=== PATIENT | male | born 1950 | race Caucasian/White ===

== ENCOUNTER 2019-12-12 15:21 | Emergency (ER) | payer MEDICARE, SELFPAY ==
--- NOTE | 2019-12-12 15:30 | ED.URI ---
HPI - URI/Sore Throat General Chief Complaint: Upper Respiratory Infection Stated Complaint: ear Time Seen by Provider: 12/12/19 15:30 Source: patient and RN notes reviewed History of Present Illness HPI Narrative: Patient is a 69-year-old male that presents the urgent care with complaints of itchy eyes, mild postnasal drainage/sore throat, head congestion and bilateral ear irritation. Patient states is been ongoing for approximately 11 to 12 days. Patient denies any known fever or runny nose. Denies any cough or shortness of breath. Patient states that he has not used anything [id number] for his symptoms with the exception of ibuprofen for head congestion. No other acute complaints. No acute distress noted. Patient aware the plan of care. Related Data Allergies Allergy/AdvReac Type Severity Reaction Status Date / Time No Known Allergies Allergy Verified 12/12/19 15:30 Review of Systems Review of Systems: Narrative: CONSTITUTIONAL: Denies fever, chills, or sweats. EYES: Denies visual changes, redness, or discharge. Reports of itchy eyes ENT: Reports of bilateral ear pressure, head congestion and mild sore throat CARDIOVASCULAR: Denies chest pain, palpitations, or edema. RESPIRATORY: Denies cough or dyspnea. GASTROINTESTINAL: Denies abdominal pain, nausea, vomiting, or diarrhea. GENITOURINARY: Denies dysuria or hematuria. SKIN: Denies rash or itching. MUSCULOSKELETAL: Denies back pain, joint pain, or myalgia. NEUROLOGIC: Denies headache, numbness, or weakness. All other systems reviewed are negative, except as documented in HPI. [facility] Social History Social History Gender identity (if verbalized by the patient): Male Comments At the time of my signature, I reviewed and agree with the nursing past medical, surgical, social, and family history. There is no relevant family history pertinent to the patient complaint. Exam Narrative: Exam Narrative: GENERAL: This is a well-nourished, well-developed patient, in no apparent distress. HEAD: normocephalic, atraumatic. EYES: PERRL. Sclera clear/white. Vision is grossly intact. Very mild bilateral injected conjunctive a EARS: External ears normal, auditory canals clear and without drainage, mild fluid noted behind bilateral TMs without otitis, TMs normal without perforation. Hearing grossly intact. NOSE: External nose normal with no obvious nasal discharge, nares without redness, no rhinorrhea. THROAT: Mucous membranes moist, posterior pharynx clear. NECK: Neck supple, non-tender without lymphadenopathy, masses or thyromegaly. CARDIOVASCULAR: Regular rate and rhythm without murmurs, gallops, or rubs. RESPIRATORY: Clear to auscultation. Breath sounds equal bilaterally. No wheezes, rales, or rhonchi. SKIN: warm, intact with no suspicious lesions or rash, good texture and turgor. NEURO: awake, alert, and oriented to person, place and time. There were no obvious focal neurologic abnormalities. EXTREMITIES: No clubbing, cyanosis, or edema. Course Vital Signs Vital signs: Vital Signs Temperature 99.0 F 12/12/19 15:42 Pulse Rate 79 12/12/19 15:42 Respiratory Rate 18 12/12/19 15:42 Blood Pressure 163/88 H 12/12/19 15:42 Pulse Oximetry 99 12/12/19 15:42 Temperature 99.0 F 12/12/19 15:42 Pulse Rate 79 12/12/19 15:42 Respiratory Rate 18 12/12/19 15:42 Blood Pressure 163/88 H 12/12/19 15:42 Pulse Oximetry 99 12/12/19 15:42 Reviewed?patient is informed that they may have pre-hypertension or hypertension based on a blood pressure reading in the department. I recommend the patient call the primary care provider listed on their discharge instructions or a physician of their choice this week to arrange follow-up for further evaluation of possible pre-hypertension or hypertension. MDM - URI/Sore Throat MDM Narrative Medical decision making narrative: Advised the patient to complete steroid regimen as prescribed. Make sure to eat and drink with medicat
[2019-12-12 15:42] VITALS: BP 163/88; PULSE 79; RESP 18; TEMP 37.2; O2SAT 99
== END 2019-12-12 15:58 | disposition home or self-care (01) ==
PROVIDERS: Emergency Provider Nurse Practitioner Family; PCP Internal Medicine
DX: T78.40XA Allergy, unspecified, initial encounter (principal)
CPT/HCPCS: 99213; G0463

== ENCOUNTER → 2020-02-10 07:10 | Outpatient (REF) | payer MEDICARE, SELFPAY | LOC: ANHLAB 07:10 | PROVIDERS: PCP Internal Medicine; Visit Provider Nurse Practitioner Family | DX: C44.329 Squamous cell carcinoma of skin of other parts of face (principal) | CPT/HCPCS: 88305; 88331 ==

== ENCOUNTER 2020-10-06 05:34 | Emergency (ER) | payer MEDICARE, SELFPAY ==
--- NOTE | ~2020-10-06 | CT_ITS ---
EXAMINATION: CT abdomen pelvis w con DATE: 10/06/2020 06:49 INDICATION: Lower abdominal pain TECHNIQUE: Computed tomography (CT) of the abdomen and pelvis was performed with 100 mL Omnipaque-350 intravenous contrast. Automated exposure control and iterative reconstruction technique were employe d. The dose-length product was 1271.29 mGy-cm. COMPARISON: 10/19/2018 and 06/01/2011 FINDINGS: Likely benign 6 mm subpleural nodules in the left lower lobe unchanged since 06/01/2011. Heart size i s normal. No pericardial or pleural effusion. No interval change in a few subcentimeter low-attenuati on hepatic lesions most likely cysts or hemangiomas. Cholecystectomy clips the gallbladder fossa. Spl een, pancreas, right kidney and bilateral adrenal glands are normal. A couple left renal cysts the la rgest measuring 4.5 cm in maximal diameter. Small gas-filled diverticulum arising from the second por tion of the duodenum. There is fatty infiltration of the wall of the small bowel at the terminal ileu m and at no additional likely jejunal loop of small bowel in the left abdomen likely representing seq uela of prior Crohn's disease. Normal appendix. There are a few sigmoid diverticula with inflammatory stranding surrounding a diverticulum at the proximal sigmoid colon consistent with diverticulitis. T race amount of free fluid along the adjacent mesentery. No free intraperitoneal gas or abscess. Bladd er is normal. No interval change in a few mildly prominent likely reactive mesenteric lymph nodes. No pathologically enlarged abdominal or pelvic lymphadenopathy. Mild bilateral chronic sacroiliitis. IMPRESSION: 1. Radiographically uncomplicated proximal sigmoid diverticulitis. 2. Fatty infiltration of the wall of the small bowel to complications consistent with sequela of know n Crohn's disease. Reviewed, dictated and finalized at location A. TER MONITOR IMPRESSION: 1. Radiographically uncomplicated proximal sigmoid diverticulitis. 2. Fatty infiltration of the wall of the small bowel to complications consisten t with sequela of known Crohn's disease.
[2020-10-06 05:40] VITALS: BP 140/83; PULSE 77; RESP 20; TEMP 37; O2SAT 97
--- NOTE | 2020-10-06 05:45 | ED.ABDPAIN ---
HPI - Abdominal Pain General Chief Complaint: Abdominal Pain Stated Complaint: abd pain x3 days Time Seen by Provider: 10/06/20 05:44 Source: patient Mode of arrival: ambulatory Limitations: no limitations History of Present Illness HPI narrative: A 69-year-old male comes into the emergency department today with complaints of lower abdominal pain. Patient states that he feels it primarily across his lower abdomen. He states it has been there going on for the past couple of days and seems to be escalating. Patient states that he had an episode of flatus earlier that did help resolve his pain. He notes no relief with bowel movements however. Patient states that he is been urinating normally. He does note a mild subjective fever. Related Data Allergies Allergy/AdvReac Type Severity Reaction Status Date / Time No Known Allergies Allergy Verified 03/22/20 08:04 Review of Systems Review of Systems: Narrative: CONSTITUTIONAL: Denies fever, chills, or sweats. EYES: Denies visual changes, redness, or discharge. ENT: Denies rhinorrhea, congestion, sore throat, or otalgia. CARDIOVASCULAR: Denies chest pain, palpitations, or edema. RESPIRATORY: Denies cough or dyspnea. GASTROINTESTINAL: Denies nausea, vomiting, or diarrhea. Endorses abdominal pain GENITOURINARY: Denies dysuria or hematuria. SKIN: Denies rash or itching. MUSCULOSKELETAL: Denies back pain, joint pain, or myalgia. NEUROLOGIC: Denies headache, numbness, dizziness, or weakness. PSYCHIATRIC: Denies anxiety or depression. [facility] Surgical History Surgical History History of cholecystectomy History of tonsillectomy Social History Social History Gender identity (if verbalized by the patient): Male Exam Narrative: Exam Narrative: GENERAL: Well-appearing, well-nourished, and in no acute distress. HEAD: Normocephalic, atraumatic. EYES: PERRLA and EOMI. ENT: Nares clear, no rhinorrhea or epistaxis. Mucous membranes moist. NECK: Supple. No adenopathy or masses. No carotid bruits or JVD CHEST: Clear to auscultation. No respiratory distress. No wheezes rales or rhonchi HEART: Regular rate and rhythm. No murmur heard. Normal peripheral pulses. ABDOMEN: Voluntary guarding, diffuse tenderness concentrated most of all in the left lower quadrant normal active bowel sounds. EXTREMITIES: Normal range of motion. No edema. SKIN: Warm, dry, no rash. NEURO: No focal deficits. Alert and oriented x3. PSYCH: Normal mood and affect. Course Reevaluation(s) Reevaluation #1: Reevaluated patient provided care update. Told him that I felt the preliminary read of the CT scan by my read was consistent with acute diverticulitis. Did spend some time educating the patient and his about diverticulitis. We will plan to treat symptomatically and discharged home. Time: 07:07 Vital Signs Vital signs: Vital Signs Temperature 37.0 C 10/06/20 05:40 Pulse Rate 77 10/06/20 05:40 Respiratory Rate 20 10/06/20 05:40 Blood Pressure 140/83 10/06/20 05:40 Pulse Oximetry 97 10/06/20 05:40 Temperature 37.0 C 10/06/20 05:40 Pulse Rate 77 10/06/20 05:40 Respiratory Rate 20 10/06/20 05:40 Blood Pressure 140/83 10/06/20 05:40 Pulse Oximetry 97 10/06/20 05:40 MDM - Abdominal Pain MDM Narrative Medical decision making narrative: In brief this 69-year-old male came into the emergency department with complaints of a few days of abdominal pain. Labs reviewed, showed minor elevation of the white count suspicious for possible developing infection. Is exquisitely tender as the patient was in the left lower quadrant I was most suspicious of diverticulitis. Patient also had a distant history of Crohn's I want to rule out other etiologies for his pain such as perforation, IBD flare or abscess. Patient will be treated with Augmentin and pain medications, recommended to f
[2020-10-06] MEDS: LACTATED RINGERS 1,000 ML 999 ML IV CONT (06:10)
[2020-10-06] MEDS: ONDANSETRON INJ 4 MG/2 ML VIAL IV PUSH (06:11)
[2020-10-06] MEDS: KETOROLAC 15 MG/ML VIAL (*BKC) IV PUSH (06:15)
[2020-10-06 06:16] LABS: Basophils Percent Auto 0.2 % (0.2-1.2); Eosinophils Absolute Auto 0.2 K/mm3 (0-0.3); Eosinophils Percent Auto 1.3 % (0-4.4); Hemoglobin 14.4 g/dL (14.0-18.0); Immature Granulocyte Absolute 0.05 K/mm3 (0.00-0.031); Immature Granulocyte Percent A 0.4 % (0-0.5); Lymphocytes Absolute Auto 2.43 K/mm3 (0.9-3.2); Lymphocytes Percent Auto 19.8 % (18.3-44.2); Mean Corpuscular HGB Conc 33.5 g/dl (32-36); Mean Corpuscular Hemoglobin 28.6 pg (26-34); Mean Corpuscular Volume 85.3 fl (80-100); Mean Platelet Volume 9.7 fl (7.4-10.4); Monocytes Absolute Auto 1.5 K/mm3 (0.1-0.6); Monocytes Percent Auto 11.9 % (2.6-8.5); Neutrophils Absolute Auto 8.1 K/mm3 (1.3-6.7); Neutrophils Percent Auto 66.4 % (45.5-73.1); Platelet Count Result 304 k/mm3 (150-375); Red Blood Count 5.04 M/mm3 (4.6-6.20); Red Cell Distribution Width 13.6 % (11.5-14.5); White Blood Count 12.3 K/mm3 (4.5-10.0)
[2020-10-06 06:27] LABS: Alanine Aminotransferase 22 U/L (4-50); Albumin Level 3.6 g/dL (3.5-5.1); Alkaline Phosphatase 88 U/L (38-126); Anion Gap 7 mmol/L (8-16); Aspartate Amino Transferase 27 U/L (17-59); Bilirubin,Total 0.5 mg/dL (0.2-1.3); Blood Urea Nitrogen 9 mg/dL (9-20); Calcium 8.6 mg/dL (8.4-10.2); Carbon Dioxide 26 mmol/L (22-30); Chloride 104 mmol/L (98-107); Estimated Glomerular Filt Rate > 60; Glucose 105 mg/dL (75-110); Lipase 75 U/L (23-300); Potassium 4.2 mmol/L (3.4-5.0); Sodium 137 mmol/L (137-145)
[2020-10-06] MEDS: oxyCODONE/ACETAMINOPHEN (*CRX) 5-325 MG TABLET 1 TABLET PO (07:03)
[2020-10-06 07:49] VITALS: BP 137/81; PULSE 78; RESP 20; O2SAT 98
[2020-10-06] MEDS: AMOXICILLIN/CLAVULANATE K 875-125 MG TAB 1 TABLET PO (07:51)
--- NOTE | 2020-10-13 03:11 | PC.NURSE ---
LATE ENTRY This note is being entered to document information to the patient's record. The following information was omitted on [], donovan stop @ 1910 [].
== END 2020-10-06 07:51 | disposition home or self-care (01) ==
PROVIDERS: Emergency Provider Emergency Medicine; PCP Internal Medicine
DX: K57.32 Diverticulitis of large intestine without perforation or abscess without bleeding (principal); K50.90 Crohn's disease, unspecified, without complications
CPT/HCPCS: 36415; 74177; 80053; 83690; 85025; 96361; 96374; 96375; 99284; A9270; J1885; J2405; J7120; Q9967

== ENCOUNTER 2020-12-11 14:43 | Emergency (ER) | payer MEDICARE, SELFPAY ==
--- NOTE | 2020-12-11 14:46 | ED.URI ---
HPI - URI/Sore Throat General Chief Complaint: Upper Respiratory Infection Stated Complaint: Cough,Sore Throat Time Seen by Provider: 12/11/20 15:30 Source: patient and RN notes reviewed Mode of arrival: ambulatory Limitations: no limitations History of Present Illness HPI Narrative: 70-year-old male presents with concern for 2-day history of cough, runny nose, chest congestion. Reports he has been fully vaccinated for Covid. Denies any known sick contacts. Reports has had body aches, denies chills, sweats, fever. MD elicited complaint: cough Related Data Home Medications Medication Instructions Recorded Confirmed atorvastatin 12/11/20 cetirizine mg 12/11/20 Allergies Allergy/AdvReac Type Severity Reaction Status Date / Time No Known Allergies Allergy Verified 10/21/20 10:18 Review of Systems Review of Systems: Narrative: CONSTITUTIONAL: Denies malaise, chills, sweats, or fever. EYES: Denies visual changes, redness, or discharge. ENT: Reports rhinorrhea, sore throat. Denies congestion, sinus pain, otalgia CARDIOVASCULAR: Denies chest pain, palpitations, or edema. RESPIRATORY: Reports cough, chest congestion. Denies dyspnea. GASTROINTESTINAL: Denies abdominal pain, nausea, vomiting, diarrhea SKIN: Denies rash or itching. MUSCULOSKELETAL: Reports myalgia. NEUROLOGIC: Denies headache. All systems reviewed & are unremarkable except as noted in HPI and below PMFSH Surgical History Surgical History History of cholecystectomy History of tonsillectomy Social History Social History Smoking status: Never smoker Gender identity (if verbalized by the patient): Male Comments At time of signature, agree with nursing past medical, surgical, social and family history. There is no relevant family history pertinent to the presenting complaint Exam Narrative: Exam Narrative: GENERAL: Well-appearing, well-nourished, and in no acute distress. HEAD: Normocephalic EYES: PERRLA, conjunctivae clear ENT: Nares clear, turbinates erythematous, clear discharge. Mucous membranes moist. TM pearly echeverria with dull light reflex bilaterally; no tragal tenderness. Oropharynx mildly erythematous without lesions. Tonsils not enlarged and without exudate, no drooling, no hoarseness, no trismus, uvula midline. NECK: Supple. No lymphadenopathy CHEST: Clear to auscultation, breath sounds equal. No wheezing, rhonchi, rales, or stridor. No respiratory distress, speaks in full sentences. Cough noted HEART: Regular rate and rhythm. No murmur heard. SKIN: Warm, dry, no rash. NEURO: Alert and oriented x3. PSYCH: Normal mood and affect Course Course Emergency Course: Patient is aware of diagnosis, understands and agrees to treatment plan. Anticipatory guidance given. Patient agrees to follow-up as directed and is aware of reasons to seek care at the emergency department. Portions of this record may have been created with voice recognition software Vital Signs Vital signs: Vital Signs Temperature 98.6 F 12/11/20 14:52 Pulse Rate 84 12/11/20 14:52 Respiratory Rate 18 12/11/20 14:52 Blood Pressure 147/78 H 12/11/20 14:52 Pulse Oximetry 100 12/11/20 14:52 Temperature 98.6 F 12/11/20 14:52 Pulse Rate 84 12/11/20 14:52 Respiratory Rate 18 12/11/20 14:52 Blood Pressure 147/78 H 12/11/20 14:52 Pulse Oximetry 100 12/11/20 14:52 Reviewed. MDM - URI/Sore Throat MDM Narrative Medical decision making narrative: Differential diagnosis considered: Beal virus, strep pharyngitis, allergic rhinitis, upper respiratory tract infection, sinusitis, rhinosinusitis, nasopharyngitis. viral pharyngitis, otitis media, otitis externa, pneumonia, bronchitis, viral cough syndrome, viral syndrome, and influenza. Exam findings show no acute concerns or changes; patient is non-toxic appearing and is in no distress. Latia
[2020-12-11 14:52] VITALS: BP 147/78; PULSE 84; RESP 18; TEMP 37; O2SAT 100
== END 2020-12-11 15:46 | disposition home or self-care (01) ==
PROVIDERS: Emergency Provider Nurse Practitioner; PCP Registered Nurse
DX: J06.9 Acute upper respiratory infection, unspecified (principal); Z20.822 Contact with and (suspected) exposure to COVID-19; E78.00 Pure hypercholesterolemia, unspecified
CPT/HCPCS: 87426; 87804; 99213; C9803; G0463

== ENCOUNTER → 2020-12-24 01:50 | Outpatient (CLI) | payer MEDICARE, SELFPAY ==
[2020-12-24 19:44] LABS: SARS-CoV-2 RNA PCR Negative
== END ==
PROVIDERS: PCP Registered Nurse; Visit Provider Internal Medicine Gastroenterology
DX: Z01.812 Encounter for preprocedural laboratory examination (principal); Z20.822 Contact with and (suspected) exposure to COVID-19
CPT/HCPCS: C9803; U0003; U0005

== ENCOUNTER 2020-12-28 02:35 | Day surgery (SDC) | payer MEDICARE, SELFPAY ==
[2020-12-23 09:39] VITALS: BMI 31.4
--- NOTE | 2020-12-28 07:57 | WPDANESEPPF ---
Anes - Initial Pre Proc Eval Procedure: Operation Date: 12/28/20 09:00 Proposed Procedures p Colonoscopy - Oh Oliveira MD Date/Time: 12/28/20 07:57 Surgeon: Oh Oliveira MD Pre Op Diagnosis: diverticulitis Patient Data Age: 70 Gender: M Height: 1.83 m Weight: 105 kg Allergies Allergy/AdvReac Type Severity Reaction Status Date / Time No Known Allergies Allergy Verified 12/28/20 08:15 Home Medications Medication Instructions Recorded Confirmed Type atorvastatin 10 mg PO DAILY 12/11/20 12/28/20 History codeine-guaifenesin [Virtussin AC] 5 ml PO Q6H PRN #120 ml 12/11/20 12/23/20 Rx ipratropium bromide 2 spray NASAL TID PRN #30 ml 12/11/20 12/23/20 Rx Patient hx anesthesia problems: none Family hx anesthesia problems: none PMFSH Past Medical History Medical History (Updated 12/28/20 @ 07:58 by Víctor Carrizales MD) Crohn's disease Eczema Hypercholesterolemia Obesity Surgical History Surgical History History of cholecystectomy History of tonsillectomy Social History Social History Smoking status: Never smoker Living arrangements: with family Gender identity (if verbalized by the patient): Male Spiritual care concerns: No Anes - Eval Final PreProcedure Day of Procedure 12/28/20 07:57 Patient weight: obese Heart: regular rate and rhythm Lungs: clear to auscultation and normal air movement Airway: Mallampati scale class II Neurological: alert and oriented Last oral intake: >/= 8 hours ASA classification: II Emergent: no Anesthetic plan: proceed Anesthesia type and monitoring: general GIVS Informed Consent: The patient's anesthetic plan and its attendant risks and benefits were discussed with the patient/family/POA. Questions were solicited and answers provided to the satisfaction of the patient/family/POA.
[2020-12-28 08:17] VITALS: BP 130/77; PULSE 79; RESP 20; TEMP 36.4; O2SAT 97; BMI 30.4
[2020-12-28] MEDS: LACTATED RINGERS 1,000 ML 150 ML IV CONT (08:33)
--- NOTE | 2020-12-28 09:05 | PM.HPGS ---
History of Present Illness History of Present Illness Consent: Risks, benefits, and alternatives have been discussed and questions answered. Patient agrees to proceed with procedure. Chief complaint: diverticulitis Narrative: Sourav Mcknight is a 70 year old male with diverticulitis and intermittent lower abdominal pain, years ago was told that probably had Crohn's (never been on treatment) but colonoscopy 2019 was normal with also normal IBD serology Review of Systems Constitutional: Constitutional: Denies headache(s) and Denies weakness Eyes: Eyes: Denies blurry vision ENT: Reports Normal hearing present, Denies headache(s) and Denies neck pain Cardiovascular: Cardiovascular: Denies chest pain and Denies dyspnea Respiratory: Respiratory: Denies dyspnea Gastrointestinal: Gastrointestinal: Reports no additional gastrointestinal complaints Genitourinary: Genitourinary: Denies dysuria Musculoskeletal: Musculoskeletal: Denies neck pain Integumentary/Breasts: Skin/Breast: Denies dry skin Neurologic: Reports Normal hearing present, Denies headache(s) and Denies weakness Psychiatric: Psychiatric: Denies anxiety Endocrine: Endocrine: Denies change in body appearance Hematologic/Lymphatic: Hematologic/Lymphatic: Denies easy bleeding Allergic/Immunologic: Allergic/Immunologic: Denies urticaria PMF Past Medical History Medical History (Updated 12/28/20 @ 09:06 by Oh Oliveira MD) Crohn's disease Eczema History of diverticulitis Hypercholesterolemia Obesity Surgical History Surgical History History of cholecystectomy History of tonsillectomy Social History Social History Smoking status: Never smoker Living arrangements: with family Gender identity (if verbalized by the patient): Male Spiritual care concerns: No Meds Home Medications and Allergies Home Medications Medication Instructions Recorded Confirmed Type atorvastatin 10 mg PO DAILY 12/11/20 12/28/20 History codeine-guaifenesin [Virtussin AC] 5 ml PO Q6H PRN #120 ml 12/11/20 12/23/20 Rx ipratropium bromide 2 spray NASAL TID PRN #30 ml 12/11/20 12/23/20 Rx Allergies Allergy/AdvReac Type Severity Reaction Status Date / Time No Known Allergies Allergy Verified 12/28/20 08:15 Vital Signs Vital Signs - 24 hr 12/28/20 08:17 Temperature 97.6 F Pulse Rate 79 Respiratory Rate 20 Blood Pressure 130/77 Pulse Oximetry 97 Exam Const: General: comfortable and no acute distress HENMT: General nose exam: Normal nares present Eyes: General: appearance normal, both eyes and all related structures Neck: Neck: no JVD Resp: Auscultation: clear to auscultation bilaterally Cardio: Rate: regular rate Rhythm: regular rhythm GI: Inspection: non-distended GI Palp: Yes Soft to palpation Skin: General skin exam: normal color Neuro: General: gait normal Speech: normal speech Extrem: General: normal to inspection Psych: Mental Status: mental status grossly normal Assessment and Plan Assessment and plan (1) History of diverticulitis: Code(s): Z87.19 - Personal history of other diseases of the digestive system Status: Acute Assessment and Plan: colonoscopy
[2020-12-28 09:29] VITALS: BP 97/59; PULSE 86; RESP 21; O2SAT 98
[2020-12-28 09:39] VITALS: BP 115/77; PULSE 76; RESP 17; O2SAT 98
[2020-12-28 09:49] VITALS: BP 119/81; PULSE 65; RESP 13; O2SAT 96
== END 2020-12-28 09:58 | disposition home or self-care (01) ==
PROVIDERS: PCP Registered Nurse; Visit Provider Internal Medicine Gastroenterology
PROC: 0DJD8ZZ Inspection of Lower Intestinal Tract, Via Natural or Artificial Opening Endoscopic (ICD-10-PCS; CPT 45378; principal; 2020-12-28 09:00)
DX: K52.9 Noninfective gastroenteritis and colitis, unspecified (principal); K57.30 Diverticulosis of large intestine without perforation or abscess without bleeding; K64.8 Other hemorrhoids; Z87.19 Personal history of other diseases of the digestive system; E78.00 Pure hypercholesterolemia, unspecified; L30.9 Dermatitis, unspecified; E66.9 Obesity, unspecified; Z68.30 Body mass index [BMI] 30.0-30.9, adult
CPT/HCPCS: 45380; 88305; C9803; J2704; J7120; U0003; U0005

== ENCOUNTER 2021-03-06 06:41 | Outpatient (CLI) | payer MEDICARE, SELFPAY ==
[2021-02-24 08:49] VITALS: BMI 31.4
--- NOTE | 2021-02-24 08:59 | PC.NURSE ---
PATIENT INTERVIEW DONE ON 02/21/2021 FOR GIVENS CAPSULE ENDOSCOPY. PT HAS KNOW HISTORY OF SMALL BOWEL OBSTRUCTION. DR. TORRES NOTIFIED AND PT SCHEDULED FOR A PATENCY CAPSULE PRIOR TO GIVENS CAPSULE. PT CALLED AND DISCUSSED WITH PATIENT, PATIENT AGREES TO DO PATENCY CAPSULE. OFFICE CALLED AND SCHEDULE CHANGED.
--- NOTE | 2021-03-06 07:29 | SUR.OPER ---
Patient brought to GI Lab. Instructions for patient undergoing Patency Capsule Endoscopy reviewed with patient. Consent form signed. Patient swallowed capsule with 8 ozs of water. Patient instructed they may have clear liquids at 0900 this AM and eat or drink at 1100 this AM. Patient to call [phone] or to return to the hospital if any nausea and vomiting or abdominal pain is experienced.
== END 2021-03-06 06:42 | disposition home or self-care (01) ==
PROVIDERS: PCP Registered Nurse; Visit Provider Internal Medicine Gastroenterology
PROC: 0DJ07ZZ Inspection of Upper Intestinal Tract, Via Natural or Artificial Opening (ICD-10-PCS; CPT 91110; principal; 2021-03-06 07:00)
DX: K52.9 Noninfective gastroenteritis and colitis, unspecified (principal)
CPT/HCPCS: 91110

== ENCOUNTER 2021-03-07 12:07 | Outpatient (CLI) | payer MEDICARE, SELFPAY ==
--- NOTE | ~2021-03-07 | XR_ITS ---
EXAMINATION: XR abdomen/kub 1V INDICATION: Patient status post capsule ingestion TECHNIQUE: Supine views of the abdomen were obtained on four radiographs. COMPARISON: 10/19/2018 FINDINGS: No radiopaque enteric foreign body is identified. Cholecystectomy clips are noted in the ri ght upper quadrant. The bowel gas pattern is normal. The visualized lung bases are clear. There appea rs to be bilateral sacroiliitis. 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 IMPRESSION: 1. No radiopaque enteric foreign body identified. Reviewed, dictated and finalized at location A.
== END 2021-03-07 12:08 | disposition home or self-care (01) ==
PROVIDERS: PCP Registered Nurse; Visit Provider Internal Medicine Gastroenterology
DX: Z09 Encounter for follow-up examination after completed treatment for conditions other than malignant neoplasm (principal)
CPT/HCPCS: 74018

== ENCOUNTER 2021-03-08 05:46 | Outpatient (CLI) | payer MEDICARE, SELFPAY ==
[2021-02-24 09:54] VITALS: BMI 31.4
[2021-03-07 16:04] VITALS: BMI 31.4
--- NOTE | 2021-03-08 06:38 | SUR.OPER ---
Patient brought to GI Lab. Instructions for patient undergoing Capsule Endoscopy reviewed with patient. Consent form signed. Sensor array applied to patient's abdomen and connected to recorded. Patient swallowed capsule with 16ozs of water infused with Simethicone. Patient instructed they may have clear liquids at 0830 this AM and eat or drink at 1030 this AM. Patient instructed to return to GI Lab at 1500 this afternoon for removal of recording device and to call [phone] or to return to the hospital if any nausea and vomiting or abdominal pain is experienced.
--- NOTE | 2021-03-08 13:52 | SUR.OPER ---
Patient returned to the GI Lab at 1347 for recorder box removal. Patient voiced no complaints. States they have understanding of instructions. Patient left ambulatory. DR TORRES OFFICE NOTIFIED
== END 2021-03-08 05:47 | disposition home or self-care (01) ==
LOC: ANHENDO 05:48
PROVIDERS: PCP Registered Nurse; Visit Provider Internal Medicine Gastroenterology
PROC: 0DJ07ZZ Inspection of Upper Intestinal Tract, Via Natural or Artificial Opening (ICD-10-PCS; CPT 91110; principal; 2021-03-08 07:00)
DX: K52.9 Noninfective gastroenteritis and colitis, unspecified (principal)
CPT/HCPCS: 91110

== ENCOUNTER 2021-03-10 15:22 | Emergency (ER) | payer MEDICARE, SELFPAY ==
--- NOTE | ~2021-03-10 | XR_ITS ---
EXAMINATION: XR chest 2V DATE: 03/10/2021 15:35 INDICATION: Left chest pain TECHNIQUE: PA and lateral views of the chest are obtained. COMPARISON: 10/18/2016 FINDINGS: The lungs are free of acute opacities. There is no pleural effusion or pneumothorax. The ca rdiomediastinal silhouette is normal. The visualized bones and soft tissues are unremarkable. IMPRESSION: 1. No acute cardiopulmonary abnormality. Reviewed, dictated and finalized at location A.
--- NOTE | ~2021-03-10 | CT_ITS ---
EXAMINATION: CT thoracic spine wo con EXAM DATE: 03/10/2021 16:30 INDICATION: Fall, back pain. TECHNIQUE: Spiral CT thoracic spine wo con was performed thoracic spine Axial, coronal and sagittal images were reviewed. The dose-length product (DLP) for this examination was 475.06 mGy-cm. The exp osure was tailored according to patient size (auto mA exposure control), and iterative reconstruction (ASIR) was used as additional dose reduction technique. Correlation is made to CT abdomen pelvis 05/2019 FINDINGS: There are no acute thoracic vertebral body fractures identified. Posterior aspects of the ribs are also unremarkable. The vertebral bodies are aligned in the AP dimension. Mild thoracic spond ylosis. No paraspinal fat stranding. No endplate erosive change. Incidental findings include a mildly proteinaceous left renal peripelvic cyst and a right adrenal mas s measuring 1.6 cm, both unchanged compared to CT from 2019, benign. IMPRESSION: Mild thoracic spondylosis. No fracture. Reviewed, dictated and finalized at location B.
--- NOTE | ~2021-03-10 | CT_ITS ---
EXAMINATION: CT cervical spine wo con DATE: 03/10/2021 16:30 INDICATION: Neck pain post fall TECHNIQUE: Computed tomography (CT) of the cervical spine was performed without intravenous contrast. Automated exposure control and iterative reconstruction technique were employed. The dose-length pro duct was 475.06 mGy-cm. COMPARISON: None FINDINGS: Alignment is normal. Vertebral body heights are normal. No fracture. Mild disc height loss at the C5- C6 the stomach. Moderate left and mild right uncovertebral osteoarthritis. Remaining disc heights are normal. Additional moderate bilateral uncovertebral osteoarthritis at C6-C7. Moderate facet osteoart hritis on the left at C6-C7. Otherwise minimal to mild multilevel bilateral cervical facet osteoarthr itis. Mild bilateral neural foraminal stenosis at C6-C7. No central canal stenosis. Cervical soft tis sues are unremarkable. Visualized airway and apices of lungs are clear. IMPRESSION: 1. Mild lower cervical spondylosis. No acute osseous abnormality. Reviewed, dictated and finalized at location A.
[2021-03-10 15:26] VITALS: BP 152/74; PULSE 69; RESP 16; TEMP 36.1; O2SAT 100
[2021-03-10] MEDS: HYDROcodone/acetaminophen (*CRX) 5-325 MG TABLET 1 TAB PO (15:54)
--- NOTE | 2021-03-10 16:02 | ED.FALL ---
HPI - Fall General Chief Complaint: Fall Stated Complaint: fell, left axillary pain Time Seen by Provider: 03/10/21 15:27 Source: patient, family and RN notes reviewed Mode of arrival: ambulatory Limitations: no limitations History of Present Illness HPI Narrative: Patient is 70-year-old male who presents with injuries related to a ground-level fall that occurred just prior to arrival slipped on mud landed on his back presents complaining of cervical thoracic midline spine pain accompanied with left rib pain denies head injury syncope loss of consciousness. Patient presents in no distress. Abrasion to the anterior right knee noted. Has not taken anything for pain Related Data Home Medications Medication Instructions Recorded Confirmed atorvastatin 10 mg PO DAILY 12/11/20 02/24/21 Allergies Allergy/AdvReac Type Severity Reaction Status Date / Time No Known Allergies Allergy Verified 02/09/21 10:06 Review of Systems Review of Systems: All systems reviewed & are unremarkable except as noted in HPI and below PMFSH Past Medical History Medical History Crohn's disease Eczema History of diverticulitis Hypercholesterolemia Ileitis, terminal Obesity Surgical History Surgical History History of cholecystectomy History of tonsillectomy Social History Social History Smoking status: Never smoker Alcohol intake: never Substance use: never Gender identity (if verbalized by the patient): Male Spiritual care concerns: No Exam Narrative: GENERAL: Well-appearing, well-nourished, and in no acute distress. HEAD: Normocephalic, atraumatic. EYES: PERRLA and EOMI. ENT: Nares clear, no rhinorrhea or epistaxis. Mucous membranes moist. NECK: Supple. No adenopathy or masses. CHEST: Clear to auscultation. No respiratory distress. No wheezes rales or rhonchi HEART: Regular rate and rhythm. No murmur heard. Normal peripheral pulses. EXTREMITIES: Normal range of motion. No edema. Midline cervical and thoracic tenderness no deformities no lumbar tenderness. Tenderness of the left lateral ribs SKIN: Warm, dry, no rash. NEURO: No focal deficits. Alert and oriented x3. Cranial nerves II through XII grossly intact PSYCH: Normal mood and affect. Course Course Emergency Course: Patient evaluated the emergency department no high risk changes in the imaging or evaluation will be discharged home treated symptomatically Vital Signs Vital signs: Vital Signs Temperature 97.0 F L 03/10/21 15:26 Pulse Rate 69 03/10/21 15:26 Respiratory Rate 16 03/10/21 15:26 Blood Pressure 152/74 H 03/10/21 15:26 Pulse Oximetry 100 03/10/21 15:26 Temperature 97.0 F L 03/10/21 15:26 Pulse Rate 69 03/10/21 15:26 Respiratory Rate 16 03/10/21 15:26 Blood Pressure 152/74 H 03/10/21 15:26 Pulse Oximetry 100 03/10/21 15:26 MDM - Fall MDM Narrative Medical decision making narrative: Patients injury or pain is consistent with musculoskeletal etiology. No signs of neurological or vascular compromise on exam. Compartments and tisues are soft without signs of compartment syndrome. Pain is felt appropriate for further evaluation on an outpatient basis. Imaging Data Radiologist's impression: ITS Impressions Chest X-Ray 03/10/21 15:37 IMPRESSION: 1. No acute cardiopulmonary abnormality. Cervical Spine CT 03/10/21 16:37 IMPRESSION: 1. Mild lower cervical spondylosis. No acute osseous abnormality. Thoracic Spine CT 03/10/21 16:45 IMPRESSION: Mild thoracic spondylosis. No fracture. Discharge Plan Discharge Clinical Impression: Rib pain on left side, Cervical muscle strain, Acute thoracic myofascial strain Patient Disposition: Home, Self-Care Condition: Stable Instructions: Antibiotic Form, Contu
[2021-03-10 17:17] VITALS: BP 137/86; PULSE 64; RESP 16; O2SAT 98
== END 2021-03-10 17:17 | disposition home or self-care (01) ==
PROVIDERS: Emergency Provider Emergency Medicine; PCP Registered Nurse
DX: S29.012A Strain of muscle and tendon of back wall of thorax, initial encounter (principal); S16.1XXA Strain of muscle, fascia and tendon at neck level, initial encounter; R07.81 Pleurodynia; K50.90 Crohn's disease, unspecified, without complications; E78.00 Pure hypercholesterolemia, unspecified; E66.9 Obesity, unspecified; Z68.31 Body mass index [BMI] 31.0-31.9, adult; M47.812 Spondylosis without myelopathy or radiculopathy, cervical region; M47.814 Spondylosis without myelopathy or radiculopathy, thoracic region; W01.0XXA Fall on same level from slipping, tripping and stumbling without subsequent striking against object, initial encounter
CPT/HCPCS: 71046; 72125; 72128; 99284; A9270

== ENCOUNTER 2021-05-24 09:40 | Emergency (ER) | payer MEDICARE, SELFPAY ==
[2021-05-24 09:49] VITALS: BP 126/71; PULSE 65; RESP 16; TEMP 36.4; O2SAT 99
--- NOTE | 2021-05-24 10:57 | ED.URI ---
HPI - URI/Sore Throat General Chief Complaint: Upper Respiratory Infection Stated Complaint: cough/congestion/sore throat /body aches Time Seen by Provider: 05/24/21 10:58 Source: patient and RN notes reviewed Mode of arrival: ambulatory Limitations: no limitations History of Present Illness HPI Narrative: 70-year-old male presents concern for 3-day history of cough, congestion, sore throat, body aches, general malaise. Reports he has been fully vaccinated for Covid and he had a booster approximately 1 month ago. He denies shortness of breath, loss of taste or smell. 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 Reports he has been taking ibuprofen and Mucinex with little relief MD elicited complaint: cough Related Data Home Medications Medication Instructions Recorded Confirmed atorvastatin 10 mg PO DAILY 12/11/20 05/24/21 Allergies Allergy/AdvReac Type Severity Reaction Status Date / Time No Known Allergies Allergy Verified 05/24/21 10:42 Review of Systems Review of Systems: CONSTITUTIONAL: Reports malaise. Denies chills, sweats, or fever. EYES: Denies visual changes, redness, or discharge. ENT: Reports rhinorrhea, congestion, sore throat. Denies sinus pain, otalgia CARDIOVASCULAR: Denies chest pain, palpitations, or edema. RESPIRATORY: Reports cough. Denies dyspnea. GASTROINTESTINAL: Denies abdominal pain, nausea, vomiting, diarrhea SKIN: Denies rash or itching. MUSCULOSKELETAL: Reports myalgia. NEUROLOGIC: Denies headache. All systems reviewed & are unremarkable except as noted in HPI and below PMFSH Past Medical History Medical History Crohn's disease Eczema History of diverticulitis Hypercholesterolemia Ileitis, terminal Obesity Surgical History Surgical History History of cholecystectomy History of tonsillectomy Social History Social History Alcohol intake: never Substance use: never Gender identity (if verbalized by the patient): Male Spiritual care concerns: No Comments At time of signature, agree with nursing past medical, surgical, social and family history. There is no relevant family history pertinent to the presenting complaint Exam Narrative: GENERAL: Well-appearing, well-nourished, and in no acute distress. HEAD: Normocephalic EYES: PERRLA, conjunctivae clear ENT: Nares clear, turbinates erythematous, clear discharge. Mucous membranes moist. TM pearly echeverria with sharp light reflex bilaterally; no tragal tenderness. Oropharynx not erythematous without lesions. Tonsils not enlarged and without exudate, no drooling, no hoarseness, no trismus, uvula midline. NECK: Supple. No lymphadenopathy CHEST: Clear to auscultation, breath sounds equal. No wheezing, rhonchi, rales, or stridor. No respiratory distress, speaks in full sentences. HEART: Regular rate and rhythm. No murmur heard. SKIN: Warm, dry, no rash. NEURO: Alert and oriented x3. PSYCH: Normal mood and affect Course Course Emergency Course: Patient is aware of diagnosis, understands and agrees to treatment plan. Anticipatory guidance given. Patient agrees to follow-up as directed and is aware of reasons to seek care at the emergency department. Portions of this record may have been created with voice recognition software Vital Signs Vital signs: Vital Signs Temperature 97.5 F L 05/24/21 09:49 Pulse Rate 65 05/24/21 09:49 Respiratory Rate 16 05/24/21 09:49 Blood Pressure 126/71 05/24/21 09:49 Pulse Oximetry 99 05/24/21 09:49 Temperature 97.5 F L 05/24/21 09:49 Pulse Rate 65 05/24/21 09:49 Respiratory Rate 16 05/24/21 09:49 Blood Pressure 126/71 05/24/21 09:49 Pulse Oximetry 99 05/24/21 09:49 Reviewed. MDM - URI/Sore Throat MDM Narrative Medical decision making narrative: Differential diagnos
[2021-05-25 18:09] LABS: SARS-CoV-2 RNA PCR Negative
== END 2021-05-24 11:30 | disposition home or self-care (01) ==
PROVIDERS: Emergency Provider Nurse Practitioner; PCP Registered Nurse
DX: J06.9 Acute upper respiratory infection, unspecified (principal); Z20.822 Contact with and (suspected) exposure to COVID-19; K50.90 Crohn's disease, unspecified, without complications; E78.00 Pure hypercholesterolemia, unspecified; E66.9 Obesity, unspecified; Z68.31 Body mass index [BMI] 31.0-31.9, adult
CPT/HCPCS: 87426; 99213; C9803; G0463; U0003; U0005

== ENCOUNTER 2021-11-25 08:24 | Emergency (ER) | payer MEDICARE, SELFPAY ==
[2021-11-25 08:38] VITALS: BP 128/72; PULSE 92; RESP 18; TEMP 36.8; O2SAT 98
--- NOTE | 2021-11-25 09:06 | ED.URI ---
HPI - URI/Sore Throat General Chief Complaint: Upper Respiratory Infection Stated Complaint: Sore Throat Time Seen by Provider: 11/25/21 09:06 Source: patient Mode of arrival: ambulatory Limitations: no limitations History of Present Illness HPI Narrative: 70-year-old male presents with complaint of nasal congestion, cough, sore throat, body aches and fatigue. Afebrile. Taking Mucinex, Robitussin and [id number] pain medication to treat his symptoms. 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 Denies Covid contact. Denies chest pain and shortness of breath. All systems reviewed and negative except as noted above. Related Data Home Medications Medication Instructions Recorded Confirmed atorvastatin 11/25/21 levothyroxine [Euthyrox] 11/25/21 testosterone cypionate mg 11/25/21 Allergies Allergy/AdvReac Type Severity Reaction Status Date / Time No Known Allergies Allergy Verified 06/29/21 10:43 Review of Systems Review of Systems: CONSTITUTIONAL: Denies fever, chills, or sweats. EYES: Denies visual changes, redness, or discharge. ENT: Reports rhinorrhea, congestion, sore throat. Denies otalgia. CARDIOVASCULAR: Denies chest pain, palpitations, or edema. RESPIRATORY: Reports cough. Denies dyspnea. GASTROINTESTINAL: Denies abdominal pain, nausea, vomiting, or diarrhea. GENITOURINARY: Denies dysuria or hematuria. SKIN: Denies rash or itching. MUSCULOSKELETAL: Denies back pain, joint pain, or myalgia. NEUROLOGIC: Denies headache, numbness, or weakness. PSYCHIATRIC: Denies anxiety or depression. All other systems reviewed are negative, except as documented in HPI. [facility] Past Medical History Medical History (Updated 11/25/21 @ 09:13 by Brandi Spaulding NP) Abdominal pain Crohn's disease Dry eyes Eczema History of diverticulitis Hypercholesterolemia Ileitis, terminal Nausea Obesity Surgical History Surgical History History of cholecystectomy History of tonsillectomy Social History Social History Alcohol intake: never Substance use: never Gender identity (if verbalized by the patient): Male Spiritual care concerns: No Comments Reviewed Exam Narrative: GENERAL: This is a well-nourished, well-developed patient, in no apparent distress. HEAD: normocephalic, atraumatic. EYES: PERRL. Sclera injected. No drainage. Vision is grossly intact. EARS: External ears normal, auditory canals clear and without drainage, TMs normal without perforation. Hearing grossly intact. NOSE: External nose normal with clear nasal drainage with mild erythema to nares. THROAT: Mucous membranes moist, mild erythema to posterior pharynx with clear postnasal drainage. NECK: Neck supple, non-tender without lymphadenopathy, masses or thyromegaly. CARDIOVASCULAR: Regular rate and rhythm without murmurs, gallops, or rubs. RESPIRATORY: Clear to auscultation. Breath sounds equal bilaterally. No wheezes, rales, or rhonchi. SKIN: warm, Dry, intact with no suspicious lesions or rash, good texture and turgor. NEURO: awake, alert, and oriented to person, place and time. There were no obvious focal neurologic abnormalities. EXTREMITIES: Normal range of motion to all extremities. Course Course Level of Care: Express Care Visit Vital Signs Vital signs: Vital Signs Temperature 36.8 C 11/25/21 08:38 Pulse Rate 92 11/25/21 08:38 Respiratory Rate 18 11/25/21 08:38 Blood Pressure 128/72 11/25/21 08:38 Pulse Oximetry 98 11/25/21 08:38 Temperature 36.8 C 11/25/21 08:38 Pulse Rate 92 11/25/21 08:38 Respiratory Rate 18 11/25/21 08:38 Blood Pressure 128/72 11/25/21 08:38 Pulse Oximetry 98 11/25/21 08:38 Reviewed MDM - URI/Sore Throat MDM Narrative Medical decision making narrative: Patient is aware of diagnosis, understands and agrees to treatment plan
== END 2021-11-25 09:30 | disposition home or self-care (01) ==
PROVIDERS: Emergency Provider Nurse Practitioner Family
DX: J06.9 Acute upper respiratory infection, unspecified (principal); K50.90 Crohn's disease, unspecified, without complications; E78.00 Pure hypercholesterolemia, unspecified; E66.9 Obesity, unspecified; Z68.31 Body mass index [BMI] 31.0-31.9, adult
CPT/HCPCS: 87081; 87880; 99213; G0463

== ENCOUNTER 2022-03-11 11:32 | Emergency (ER) | payer MEDICARE, SELFPAY ==
[2022-03-11] VITALS (20 sets, daily range): BP systolic 139–172; BP diastolic 85–112; PULSE 75–88; RESP 14–16; TEMP 36.4; O2SAT 94–100
[2022-03-11 11:49] LABS: Basophils Percent Auto 0.3 % (0.2-1.2); Eosinophils Percent Auto 0.4 % (0-4.4); Hematocrit 47.3 % (42.0-52.0); Hemoglobin 15.5 g/dL (14.0-18.0); Immature Granulocyte Absolute 0.07 K/mm3 (0.00-0.031); Lymphocytes Percent Auto 35.7 % (18.3-44.2); Mean Corpuscular HGB Conc 32.8 g/dl (32-36); Mean Corpuscular Hemoglobin 28.4 pg (26-34); Mean Corpuscular Volume 86.6 fl (80-100); Mean Platelet Volume 9.2 fl (7.4-10.4); Monocytes Absolute Auto 0.8 K/mm3 (0.1-0.6); Monocytes Percent Auto 10.7 % (2.6-8.5); Neutrophils Absolute Auto 3.6 K/mm3 (1.3-6.7); Neutrophils Percent Auto 51.9 % (45.5-73.1); Platelet Count Result 279 k/mm3 (150-375); Red Blood Count 5.46 M/mm3 (4.6-6.20); Red Cell Distribution Width 14.1 % (11.5-14.5)
[2022-03-11 11:52] LABS: Appearance Urine Clear (Clear); Bilirubin Urine Negative (Negative); Blood Urine Negative (Negative); Color Urine Yellow (Yellow); Glucose Urine UA Negative (Negative); Ketones Urine Negative (Negative); Leukocyte Esterase Ur Negative LEU/UL (Negative); Nitrate Urine Negative (Negative); Protein Urine 1+ mg/dL (Negative); Specific Grav Ur 1.015 (1.001-1.035); Urobilinogen Urine 0.2 mg/dL (<2.0); pH Urine >=9.0 (5.0-9.0)
[2022-03-11 11:58] LABS: Mucus Urine Rare /lpf; RBC Urine 0-2 /hpf (0-2); WBC Urine 0-3 /hpf
[2022-03-11 11:59] LABS: Alanine Aminotransferase 52 U/L (6-50); Albumin Level 3.9 g/dL (3.5-5.1); Alkaline Phosphatase 95 U/L (38-126); Anion Gap 8 mmol/L (8-16); Aspartate Amino Transferase 42 U/L (17-59); Bilirubin,Total 0.8 mg/dL (0.2-1.3); Blood Urea Nitrogen 9 mg/dL (9-20); Calcium 8.1 mg/dL (8.4-10.2); Carbon Dioxide 31 mmol/L (22-30); Chloride 99 mmol/L (98-107); Estimated CRCL calculation 105 ml/min; Estimated Glomerular Filt Rate > 60; Glucose 117 mg/dL (65-110); Lipase 71 U/L (23-300); Potassium 4.6 mmol/L (3.4-5.0); Sodium 138 mmol/L (137-145)
[2022-03-11 12:00] LABS: Add Urine Microscopic? YES
[2022-03-11] MEDS: SODIUM CHLORIDE 0.9% IV 1,000 ML 999 ML IV CONT (13:03)
[2022-03-11] MEDS: ONDANSETRON INJ 4 MG/2 ML VIAL IV PUSH (13:03)
--- NOTE | 2022-03-11 14:10 | ED.ABDPAIN ---
HPI - Abdominal Pain General Chief Complaint: Abdominal Pain Stated Complaint: covid positive, abd pain Time Seen by Provider: 03/11/22 12:41 History of Present Illness HPI narrative: Patient is a 71-year-old male who presents ER with multiple complaints. Reports over the last 4 days has been having epigastric discomfort with nausea. He also gets some dizziness with laying backwards and other movements. Sometimes the dizziness and nausea are associated together. No weakness or numbness in arm or leg. No chest pain or chest pressure. No exertional dyspnea. He has been on antiviral for his COVID 19 that was diagnosed 1 week ago and his doctor thought that may have been the cause of some nausea so he quit 2 days after symptoms began but his symptoms still persist in terms of abdominal discomfort and nausea. Reports he started taking Pepto-Bismol and the color of his stool has changed. Related Data Home Medications Medication Instructions Recorded Confirmed atorvastatin 10 mg tablet 11/25/21 levothyroxine 50 mcg tablet 11/25/21 (Euthyrox) testosterone cypionate 200 mg/mL mg 11/25/21 intramuscular oil Allergies Allergy/AdvReac Type Severity Reaction Status Date / Time No Known Allergies Allergy Verified 06/29/21 10:43 Review of Systems Review of Systems: All systems reviewed & are unremarkable except as noted in HPI and below Constitutional: Constitutional: Denies chills and Denies fever(s) ENT: Denies nasal congestion and Denies sore throat Cardiovascular: Cardiovascular: Denies chest pain, Denies rapid heart rate and Denies radiating jaw, neck or arm pain Respiratory: Respiratory: Denies cough and Denies dyspnea Gastrointestinal: Gastrointestinal: Reports abdominal pain, Reports nausea and Denies vomiting Neurologic: Reports dizziness, Denies headache(s), Denies focal weakness and Denies numbness [facility] Past Medical History Medical History (Updated 03/11/22 @ 14:48 by Donavon Vang MD) Abdominal pain Crohn's disease Dry eyes Eczema History of diverticulitis Hypercholesterolemia Ileitis, terminal Nausea Obesity Surgical History Surgical History History of cholecystectomy History of tonsillectomy Social History Social History Alcohol intake: never Substance use: never Gender identity (if verbalized by the patient): Male Spiritual care concerns: No Exam Narrative: GENERAL: Well-appearing, well-nourished, and in no acute distress. HEAD: Normocephalic, atraumatic. EYES: PERRL and EOMI. CHEST: Clear to auscultation. No respiratory distress. HEART: Regular rate and rhythm. Normal peripheral pulses. ABDOMEN: Soft, nontender, nondistended. Digital rectal exam with Hemoccult negative stool. EXTREMITIES: Normal range of motion. No edema. SKIN: Warm, dry, no rash. NEURO: Alert and oriented x3. PSYCH: Normal mood and affect. Course Course Emergency Course: Patient informed of results. Meclizine given for dizziness as it seems to be very much positional. Discharge home with supportive therapy. No evidence of internal bleeding. Vital Signs Vital signs: Vital Signs Temperature 97.5 F L 03/11/22 11:33 Pulse Rate 75 03/11/22 11:33 Respiratory Rate 14 03/11/22 11:33 Blood Pressure 148/85 H 03/11/22 11:33 Pulse Oximetry 100 03/11/22 11:33 Oxygen Delivery Room Air 03/11/22 11:33 Temperature 97.5 F L 03/11/22 11:33 Pulse Rate 82 03/11/22 14:16 Respiratory Rate 16 03/11/22 14:16 Blood Pressure 155/103 H 03/11/22 14:16 Pulse Oximetry 97 03/11/22 14:16 Oxygen Delivery Room Air 03/11/22 11:33 MDM - Abdominal Pain Lab Data Result diagrams: 03/11/22 11:41 03/11/22 11:41 Labs: Lab Results 03/11/22 03/11/22 03/11/22 Range/Units 11:41 11:41 11:42 WBC 7.0 (4.5-10.0) K/mm3 RBC 5.46 (4.6
[2022-03-11] MEDS: MECLIZINE HCL 25 MG TABLET PO (14:28)
== END 2022-03-11 15:15 | disposition home or self-care (01) ==
PROVIDERS: Emergency Medicine; Emergency Provider Emergency Medicine
DX: U07.1 COVID-19 (principal); R42 Dizziness and giddiness; K50.90 Crohn's disease, unspecified, without complications; E78.00 Pure hypercholesterolemia, unspecified; E66.9 Obesity, unspecified; Z68.32 Body mass index [BMI] 32.0-32.9, adult
CPT/HCPCS: 36415; 80053; 81001; 83690; 85025; 96374; 99284; A9270; J2405; J7030

== ENCOUNTER 2022-12-04 16:54 | Inpatient (IN) | payer MEDICARE, SELFPAY ==
--- NOTE | ~2022-12-04 | XR_ITS ---
EXAMINATION: XR sm bowel follow through WS DATE: 12/05/2022 12:51 INDICATION: Crohn's disease presenting with possible small bowel obstruction. TECHNIQUE: Creative [employer] radiograph(s) of the abdomen was/were obtained. Oral contrast was administered, and sequential radiographs of the abdomen were obtained until oral contrast was noted to be in the proxi mal colon. A total of 116 fluoroscopic images and 4 overhead radiographs of the small bowel were obta ined. Fluoroscopy exposure time was 0.3 minutes. COMPARISON: CT dated 12/04/2022 FINDINGS: Transit time from the stomach to proximal colon was approximately 45 minutes. There is normal caliber and mucosal fold pattern throughout the small bowel. On the overhead radiographs there is a persiste nt 1.5 cm long stricture measuring approximate 5 mm an intraluminal diameter along a segment of small bowel just to left of midline in the central abdomen. On the CT there are a few small segments of sm all bowel in the left abdomen demonstrating mild wall thickening with intramural fat attenuation whic h can be seen as sequela of chronic inflammation such as in the setting of Crohn's disease. No dilate d small bowel to suggest obstruction. Terminal ileum is normal. Cholecystectomy clips in the right up per quadrant.. IMPRESSION: 1. Nonobstructing stricture of a short segment of small bowel in the left abdomen which is likely seq uela of chronic Crohn's disease. Reviewed, dictated and finalized at location A. IMPRESSION: 1. Nonobstructing stricture of a short segment of small bowel in the left abdom en which is likely sequela of chronic Crohn's disease.
--- NOTE | ~2022-12-04 | XR_ITS ---
EXAMINATION: XR abdomen obstructive series DATE: 12/05/2022 09:33 INDICATION: Small bowel obstruction TECHNIQUE: Upright and supine views of the abdomen were obtained. COMPARISON: CT from yesterday FINDINGS: No dilated loops of bowel are identified. The bowel gas pattern is normal. No free intraper itoneal gas is identified. A moderate volume of colonic stool is present. There is opacification of t he urinary bladder by contrast from yesterday's CT examination. 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 IMPRESSION: 1. Nonobstructive bowel gas pattern. Reviewed, dictated and finalized at location B.
--- NOTE | ~2022-12-04 | CT_ITS ---
EXAMINATION: CT abdomen pelvis w con DATE: 12/04/2022 22:06 INDICATION: diffuse L abd pain, N/V, Hx crohns/diverticulitis TECHNIQUE: Computed tomography (CT) of the abdomen and pelvis was performed with 100 mL Omnipaque-350 intravenous contrast. Automated exposure control and iterative reconstruction technique were employe d. The dose-length product was 1244.35 mGy-cm. COMPARISON: 10/06/2020 and 10/19/2018. FINDINGS: Lower thorax: Dependent right scar/atelectasis. Chronic right pleural thickening. Likely benign subpl eural nodules in the left lower lobe. Liver: Simple right liver lobe cyst. Stable hypodensities near the tip of the liver in the right lobe likely hemangiomas or cysts. Coronary artery calcification. Biliary/Gallbladder: Gallbladder is absent. No bile duct dilation. Pancreas: No mass or duct dilation. Spleen: Normal. Adrenals:No mass. Kidneys: Left midpole cyst. No suspicious mass, hydronephrosis, or obstructing calcification. GI tract: Uncomplicated appearing duodenal diverticulum. Loop of mildly dilated jejunum in the left a bdomen. Scattered areas of chronic submucosal fat deposition in the small bowel. Normal appendix. Mil d diverticulosis without diverticulitis. Mesentery/Peritoneum: No ascites, mass, or free air. Mesenteric lymphadenopathy. Retroperitoneum: No mass. Mild atherosclerotic abdominal aortic and/or arterial calcifications. Pelvis: Pelvic organs are within normal limits. Soft Tissues: Soft tissues and body wall unremarkable. Bones: No acute osseous finding. IMPRESSION: Single loop of mildly dilated jejunum in the left abdomen, may represent mild ileus. Early/partial ob struction is not excluded. No transition point. No significant surrounding inflammatory change or mas s. Chronic mesenteric lymphadenopathy. Reviewed, dictated and finalized at location K. IMPRESSION: Single loop of mildly dilated jejunum in the left abdomen, may represent mild i leus. Early/partial obstruction is not excluded. No transition point. No signif icant surrounding inflammatory change or mass. Chronic mesenteric lymphadenopat hy.
--- NOTE | 2022-12-04 16:56 | PC.NURSE ---
[facility] gave zofran en route.
[2022-12-04 16:58] VITALS: BP 169/80; PULSE 61; RESP 16; TEMP 36.4; O2SAT 97
[2022-12-04 17:26] LABS: Basophils Absolute Auto 0.1 K/mm3 (0.0-0.1); Basophils Percent Auto 0.4 % (0.2-1.2); Eosinophils Absolute Auto 0.1 K/mm3 (0-0.3); Eosinophils Percent Auto 0.6 % (0-4.4); Hematocrit 43.6 % (42.0-52.0); Hemoglobin 15.2 g/dL (14.0-18.0); Immature Granulocyte Absolute 0.08 K/mm3 (0.00-0.031); Immature Granulocyte Percent A 0.7 % (0-0.5); Lymphocytes Percent Auto 18.9 % (18.3-44.2); Mean Corpuscular HGB Conc 34.9 g/dl (32-36); Mean Corpuscular Hemoglobin 30.4 pg (26-34); Mean Corpuscular Volume 87.2 fl (80-100); Mean Platelet Volume 9.3 fl (7.4-10.4); Monocytes Absolute Auto 1.2 K/mm3 (0.1-0.6); Monocytes Percent Auto 9.8 % (2.6-8.5); Neutrophils Absolute Auto 8.5 K/mm3 (1.3-6.7); Neutrophils Percent Auto 69.6 % (45.5-73.1); Platelet Count Result 299 k/mm3 (150-375); Red Cell Distribution Width 13.6 % (11.5-14.5); White Blood Count 12.1 K/mm3 (4.5-10.0)
[2022-12-04 17:36] LABS: Alanine Aminotransferase 29 U/L (6-50); Alkaline Phosphatase 89 U/L (38-126); Anion Gap 9 mmol/L (8-16); Aspartate Amino Transferase 33 U/L (17-59); Bilirubin,Total 0.5 mg/dL (0.2-1.3); Blood Urea Nitrogen 13 mg/dL (9-20); Calcium 8.9 mg/dL (8.4-10.2); Carbon Dioxide 26 mmol/L (22-30); Chloride 103 mmol/L (98-107); Estimated CRCL calculation 116 ml/min; Estimated Glomerular Filt Rate > 60; Glucose 135 mg/dL (65-110); Lipase 79 U/L (23-300); Sodium 138 mmol/L (137-145)
--- NOTE | 2022-12-04 21:55 | ED.ABDPAIN ---
HPI - Abdominal Pain General Chief Complaint: Abdominal Pain <LAURITA Montiel Last Filed: 12/05/22 01:31> Stated Complaint: Abdominal pain/nausea <LAURITA Montiel Last Filed: 12/05/22 01:31> Time Seen by Provider: 12/04/22 21:26 <LAURITA Montiel Last Filed: 12/05/22 01:31> Source: patient <LAURITA Montiel Last Filed: 12/05/22 01:31> Mode of arrival: EMS <LAURITA Montiel Filed: 12/05/22 01:31> Limitations: no limitations <LAURITA Montiel Filed: 12/05/22 01:31> History of Present Illness HPI narrative: Patient is a 71 y/o male who presents to the ED via EMS with report of diffuse abdominal pain. Patient reports the pain began suddenly around 3 PM. He states the pain was severe at first at which point EMS was called. The pain has somewhat improved since being in the ED waiting room. Patient did not take anything for pain [employer]. He c/o nausea and states he tried to force himself to vomit, but was unable to. He notes a Hx of Crohn's disease, diverticulitis, bowel obstruction, and sees Dr. Thayer with GI. He states the pain felt similar to previous SBO. Last colonoscopy was a few years ago and normal. Patient also reports having abdominal bloating, but denies diarrhea, constipation. Last bowel movement this morning and normal. Denies rectal bleeding or melena. Denies fever, urinary symptoms. <LAURITA Montiel Last Filed: 12/05/22 01:31> Related Data Home Medications: Home Medications Medication Instructions Recorded Confirmed atorvastatin 10 mg tablet (Lipitor) 10 mg PO DAILY 11/25/21 12/05/22 levothyroxine 50 mcg tablet 50 mcg PO DAILY 11/25/21 12/05/22 (Euthyrox) dupilumab 200 mg/1.14 mL 200 mg subcut ONCE 11/10/22 04/26/23 subcutaneous pen injector (Dupixent) <Aurea Hunt PA-C - Last Filed: 12/05/22 01:31> Allergies/Adverse Reactions: Allergies Allergy/AdvReac Type Severity Reaction Status Date / Time No Known Allergies Allergy Verified 10/30/22 10:00 <Aurea Hunt PA-C - Last Filed: 12/05/22 01:31> Review of Systems Review of Systems: CONSTITUTIONAL: Denies fever, chills, or sweats. CARDIOVASCULAR: Denies chest pain. RESPIRATORY: Denies dyspnea. GASTROINTESTINAL: See HPI. GENITOURINARY: Denies dysuria or hematuria. SKIN: Denies rash or itching. MUSCULOSKELETAL: Denies back pain, joint pain, or myalgia. NEUROLOGIC: Denies headache, numbness, or weakness. <LAURITA Montiel Last Filed: 12/05/22 01:31> All systems reviewed & are unremarkable except as noted in HPI and below <Aurea Hunt PA-C - Last Filed: 12/05/22 01:31> [facility] Past Medical History Medical History: Medical History (Updated 12/05/22 @ 13:38 by Oh Oliveira MD) Abdominal pain Bowel obstruction Crohn's disease Dry eyes Eczema History of diverticulitis Hypercholesterolemia Ileitis, terminal Nausea Obesity Partial small bowel obstruction <LAURITA Montiel Last Filed: 12/05/22 01:31> Surgical History Surgical History: Surgical History History of cholecystectomy Open cholecystectomy History of tonsillectomy <LAURITA Montiel Last Filed: 12/05/22 01:31> Family History Family History: Family History Mother Diverticulitis <LAURITA Montiel Last Filed: 12/05/22 01:31> Social History Social History: Social History Smoking status: Never smoker Alcohol intake: never Substance use: never Lack of Transportation: No Lack of Food: Never True Current Housing: I Have Housing Concerned About Future Housing: No Difficulty Paying Gas/Electric Bills: No Difficulty Paying for Meds: No
[2022-12-04 22:09] LABS: Appearance Urine Clear (Clear); Bacteria Urine None Seen /hpf; Bilirubin Urine Negative (Negative); Blood Urine Negative (Negative); Color Urine Dark Yellow (Yellow); Glucose Urine UA Negative (Negative); Ketones Urine 1+ mg/dL (Negative); Leukocyte Esterase Ur Negative LEU/UL (Negative); Nitrate Urine Negative (Negative); Non Pathogenic Casts 0-2; Protein Urine 1+ mg/dL (Negative); RBC Urine 0-2 /hpf (0-2); Specific Grav Ur 1.029 (1.001-1.035); Squamous Epithelial Cell Urine None seen /hpf (Few); WBC Urine 0-5 /hpf; pH Urine 6.5 (5.0-9.0)
[2022-12-04] MEDS: SODIUM CHLORIDE 0.9% IV 1,000 ML 999 ML IV CONT (22:20)
[2022-12-04 22:21] LABS: Add Urine Microscopic? YES
[2022-12-04] MEDS: ONDANSETRON INJ 4 MG/2 ML VIAL IV PUSH (22:21)
[2022-12-04] MEDS: MORPHINE SULFATE (*CRX) 4 MG/ML INJ IV PUSH (22:21)
--- NOTE | 2022-12-04 23:35 | PM.IMHP ---
H&P: HPI History of Present Illness Date/Time: 12/04/22 23:35 Chief Complaint: Abdominal pain Narrative: This is a 71-year-old male with past medical history of Crohn's disease in remission, patient is on Humira, dry eyes. Patient presents to the emergency room due to intractable nausea with dry heaving abdominal distension abdominal pain, cramps. Patient has been his usual state of health had a bowel movement in the morning and it was his usual, rates his pain a 10/10 intensity . Patient denies any fevers, rigors, chills. Preliminary workup was significant for CT of abdomen and pelvis was reported as: INDICATION: diffuse L abd pain, N/V, Hx crohns/diverticulitis TECHNIQUE: Computed tomography (CT) of the abdomen and pelvis was performed with 100 mL Omnipaque-350 intravenous contrast. Automated exposure control and iterative reconstruction technique were employed. The dose-length product was 1244.35 mGy-cm. COMPARISON: 10/06/2020 and 10/19/2018. FINDINGS: Lower thorax: Dependent right scar/atelectasis. Chronic right pleural thickening. Likely benign subpleural nodules in the left lower lobe. Liver: Simple right liver lobe cyst. Stable hypodensities near the tip of the liver in the right lobe likely hemangiomas or cysts. Coronary artery calcification.? Biliary/Gallbladder: Gallbladder is absent. No bile duct dilation. Pancreas: No mass or duct dilation. Spleen: Normal. Adrenals:No mass. Kidneys: Left midpole cyst. No suspicious mass, hydronephrosis, or obstructing calcification. GI tract: Uncomplicated appearing duodenal diverticulum. Loop of mildly dilated jejunum in the left abdomen. Scattered areas of chronic submucosal fat deposition in the small bowel. Normal appendix. Mild diverticulosis without diverticulitis. Mesentery/Peritoneum: No ascites, mass, or free air. Mesenteric lymphadenopathy. Retroperitoneum: No mass. Mild atherosclerotic abdominal aortic and/or arterial calcifications. Pelvis: Pelvic organs are within normal limits. Soft Tissues: Soft tissues and body wall unremarkable. Bones:? No acute osseous finding. IMPRESSION: Single loop of mildly dilated jejunum in the left abdomen, may represent mild ileus. Early/partial obstruction is not excluded. No transition point. No significant surrounding inflammatory change or mass. Chronic mesenteric lymphadenopathy. Review of Systems Review of Systems: Abdominal pain, abdominal distension, nausea, dry heaving Constitutional: Constitutional: Denies chills, Denies fatigue, Denies fever(s), Denies malaise, Denies night sweats, Denies weakness and Denies weight loss Eyes: Eyes: Denies change in vision ENT: Denies dysphagia and Denies odynophagia Cardiovascular: Cardiovascular: Denies chest pain, Denies leg edema and Denies palpitations Respiratory: Respiratory: Denies chest congestion, Denies cough and Denies dyspnea Gastrointestinal: Gastrointestinal: Reports abdominal pain, Denies melena, Denies coffee ground emesis, Denies dyspepsia, Denies heartburn, Denies diarrhea, Denies loose stools, Reports nausea and Denies vomiting Genitourinary: Genitourinary: Denies dysuria Musculoskeletal: Musculoskeletal: Denies back pain Integumentary/Breasts: Skin/Breast: Denies rash Neurologic: Denies focal weakness and Denies Sensory deficit (Neuro) Psychiatric: Psychiatric: Reports no additional psychiatric complaints and Reports as per HPI Endocrine: Endocrine: Denies cold intolerance, Denies fatigue, Denies flushing, Denies heat intolerance, Denies polyphagia, Denies polydipsia and Denies palpitations Hematologic/Lymphatic: Hematologic/Lymphatic: Reports no additional hematologic/lymphatic complaints and Reports as per HPI Allergic/Immunologic: Allergic/Immunologic: Reports no additional allergic/immunologic complaints and Reports as per HPI PMFSH Past Medical History Medical History (Updated 12/04/22 @ 23:26 by Aurea Hunt PA-C) Abdominal pain Bowel obstruction 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
[2022-12-05] VITALS (9 sets, daily range): BP systolic 114–169; BP diastolic 62–100; PULSE 65–86; RESP 14–20; TEMP 35.8–37.1; O2SAT 97–99; BMI 32.5
--- NOTE | 2022-12-05 00:30 | ADMGEN ---
This patient, Sourav Mcknight, was admitted to 3 [facility] Room 304-02. Patient/family oriented to hospital policies and general routines including ID bracelet, bed and alarms, visiting hours, pain management, procedures, bathroom and other care routines, personal items, smoking policy, room service/diet, and visiting hours. Information on how to activate the Rapid Response Team has been discussed. Patient/Family are encouraged to report perceived risks to care and to ask questions if they do not understand what they are told or what they should do.
[2022-12-05] MEDS: MORPHINE SULFATE (*CRX) 4 MG/ML INJ IV PUSH (01:07)
[2022-12-05 09:08] LABS: Basophils Percent Auto 0.3 % (0.2-1.2); Eosinophils Absolute Auto 0.1 K/mm3 (0-0.3); Hematocrit 40.1 % (42.0-52.0); Hemoglobin 13.4 g/dL (14.0-18.0); Immature Granulocyte Absolute 0.04 K/mm3 (0.00-0.031); Immature Granulocyte Percent A 0.4 % (0-0.5); Lymphocytes Absolute Auto 2.91 K/mm3 (0.9-3.2); Lymphocytes Percent Auto 27.1 % (18.3-44.2); Mean Corpuscular HGB Conc 33.4 g/dl (32-36); Mean Corpuscular Hemoglobin 29.6 pg (26-34); Mean Corpuscular Volume 88.7 fl (80-100); Mean Platelet Volume 9.4 fl (7.4-10.4); Monocytes Absolute Auto 1.4 K/mm3 (0.1-0.6); Monocytes Percent Auto 13.3 % (2.6-8.5); Neutrophils Absolute Auto 6.2 K/mm3 (1.3-6.7); Neutrophils Percent Auto 57.9 % (45.5-73.1); Platelet Count Result 273 k/mm3 (150-375); Red Blood Count 4.52 M/mm3 (4.6-6.20); Red Cell Distribution Width 13.7 % (11.5-14.5); White Blood Count 10.8 K/mm3 (4.5-10.0)
[2022-12-05 09:21] LABS: Anion Gap 3 mmol/L (8-16); Blood Urea Nitrogen 10 mg/dL (9-20); Calcium 8.3 mg/dL (8.4-10.2); Carbon Dioxide 29 mmol/L (22-30); Chloride 104 mmol/L (98-107); Estimated CRCL calculation 122 ml/min; Estimated Glomerular Filt Rate > 60; Glucose 100 mg/dL (65-110); Potassium 4.1 mmol/L (3.4-5.0); Sodium 136 mmol/L (137-145)
[2022-12-05] MEDS: SODIUM CHLORIDE 0.9% IV 1,000 ML 100 ML IV CONT ×2 (09:40→20:21)
--- NOTE | 2022-12-05 10:45 | PM.CNGS ---
Assessment and Plan Assessment and plan (1) Bowel obstruction: Code(s): K56.609 - Unspecified intestinal obstruction, unspecified as to partial versus complete obstruction Status: Acute Assessment and Plan: Patient with Crohn's disease who presented with abdominal pain and nausea. CT showed a single loop of mildly dilated jejunum but no obvious transition point, suggesting ileus versus partial small bowel obstruction. He is already clinically improving and abdominal pain has nearly resolved. No abdominal distention or diffuse peritoneal signs. This does not appear to be a high-grade small bowel obstruction. We would recommend to continue with conservative management at this time with bowel rest, IV fluids, and analgesics as needed. Will defer NG tube for now unless he begins vomiting or becomes distended. Will also order a water soluble small bowel follow through to further assess the possible obstruction. If this is negative, then he could be started on a clear liquid diet. Agree with GI consultation regarding management of his Crohn's disease. Thank you for allowing us to see the patient in consultation. (2) Crohn's disease: Qualifiers: Digestive disease complication type: without complication Gastrointestinal tract location: unspecified location Qualified Code(s): K50.90 - Crohn's disease, unspecified, without complications Code(s): K50.90 - Crohn's disease, unspecified, without complications Status: Acute Plan I have discussed the patient's case and plan of care with Dr. Gonzalez. History of Present Illness Consult details Consult date: 12/05/22 Reason for consult: other (Small bowel obstruction) Requesting physician: Aurea Hunt PA-C Narrative: This is a 71-year-old man with Crohn's disease who presented to the ER with complaints of abdominal pain. He reports having a sudden onset of severe cramping generalized abdominal pain yesterday while at work. He became bloated and severely nauseated. He tried vomiting and had dry heaves, but never actually vomited. His pain persisted and ultimately brought him into the ER for evaluation. Labs [place] [id number] scan of abdomen and pelvis showed a single loop of mildly dilated jejunum in the left mid abdomen, possible ileus versus early/partial obstruction. No transition point identified. He was admitted to the hospitalist service. He was not having any vomiting in the ER and NG tube was deferred. Our service was consulted for the possible small bowel obstruction. The patient is now seen on the medical floor. He had an obstructive series this morning that showed a nonobstructive bowel gas pattern. He reports feeling much better today. Denies any abdominal pain, but reports having some soreness across his entire abdomen. He denies any more nausea since admission. He has not had any vomiting. He reports flatus, but no BMs since yesterday morning prior to the onset of symptoms. Denies any recent episodes of diarrhea. He denies any recent flare-ups of his Crohn's disease. He takes Humira every 2 weeks and is due for his next dose in 2 days. His only previous abdominal surgery was an open cholecystectomy years ago. He does report a history of diverticulitis and a small bowel obstruction in the past. He had a small bowel obstruction over 3 years ago that was treated conservatively with NG tube decompression. He believes at that time it was related to his Crohn's disease. 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 Review of Systems Review of Systems: All systems reviewed & are unremarkable except as noted in HPI and below Constitutional: Constitutional: Reports no additional constitutional complaints, Denies chills, Denies fatigue and Denies fever(s) Eyes: Eyes: Reports no additional eye complaints ENT: Reports system reviewed and no additional complaints, except as documen
--- NOTE | 2022-12-05 13:09 | PM.IMPN ---
Progress Note: A&P Assessment and Plan (1) Crohn's disease: Qualifiers: Digestive disease complication type: without complication Gastrointestinal tract location: unspecified location Qualified Code(s): K50.90 - Crohn's disease, unspecified, without complications Code(s): K50.90 - Crohn's disease, unspecified, without complications Status: Acute (2) Left sided abdominal pain: Code(s): R10.9 - Unspecified abdominal pain Status: Acute (3) Bowel obstruction: Code(s): K56.609 - Unspecified intestinal obstruction, unspecified as to partial versus complete obstruction Status: Acute Plan 71-year-old male with past medical history of Crohn's disease in remission, presented to the emergency room due to intractable nausea with dry heaving abdominal distension abdominal pain, cramps. 1)Small Bowel Obstruction: Appreciate surgery help NPO IV fluids pain control Zofran PRN Plan for small bowel follow through Await GI consult 2)DVT ppx: Hep SQ 3)Code:Full 4)Dispo:pending improvement Time Spent With Patient Time with patient: 15 - 25 minutes Subjective Date/time seen: 12/05/22 13:09 Interval history: still has lower abdominal pain but in no distress Review of Systems Review of Systems: All systems reviewed & are unremarkable except as noted in HPI and below Exam Const: General: comfortable and no acute distress HENMT: Mouth: Yes moist mucous membranes Eyes: Sclera: sclerae normal Neck: Neck: supple Resp: Effort & Inspection: normal respiratory effort Auscultation: clear to auscultation bilaterally Cardio: Rate: regular rate Rhythm: regular rhythm GI: GI Palp: Yes Soft to palpation and Yes Tenderness to palpation present (GI) Auscultation: normal bowel sounds Skin: General skin exam: normal color Neuro: Speech: normal speech Extrem: General: normal to inspection Psych: Mental Status: mental status grossly normal Objective Data Vital Signs Vital Signs: Vital Signs - 24 hr 12/04/22 16:58 12/05/22 00:23 12/05/22 01:00 Temperature 97.5 F L 98.7 F 96.6 F L Pulse Rate 61 65 86 Respiratory Rate 16 18 16 Blood Pressure 169/80 H 169/100 H 146/84 H Pulse Oximetry 97 99 99 Oxygen Delivery Room Air 12/05/22 06:00 12/05/22 07:39 12/05/22 08:30 Temperature 97 F L 97.6 F Pulse Rate 76 68 Respiratory Rate 20 17 Blood Pressure 114/62 136/79 Pulse Oximetry 97 98 Oxygen Delivery Room Air Intake/Output Intake/Output: Intake & Output 12/02/22 12/03/22 12/04/22 12/05/22 23:59 23:59 23:59 23:59 Intake Total 1100 Output Total 175 Balance 925 Meds/Results Medications: Active Medications Generic Name Dose Route Start Last Admin Trade Name Freq PRN Reason Stop Dose Admin Sodium Chloride 1,000 mls @ 100 mls/hr 12/05/22 08:50 12/05/22 09:40 Normal Saline Iv IV CONT 100 mls/hr .Q10H YUNIOR Administration Morphine Sulfate 2 mg 12/05/22 00:59 Morphine Sulfate (*Crx) 2 Mg/Ml Inj IV PUSH Q4H PRN Pain Rated 4-6 Morphine Sulfate 4 mg 12/05/22 00:59 12/05/22 01:07 Morphine Sulfate (*Crx) 4 Mg/Ml Inj IV PUSH 4 mg Q4H PRN Administration Pain Rated 7-10 Ondansetron HCl 4 mg 12/04/22 23:30 Ondansetron Inj 4 Mg/2 Ml Vial IV PUSH Q4H PRN Nausea Radiology Results: ITS Impressions Abdomen/Pelvis CT 12/04/22 22:23 IMPRESSION: Single loop of mildly dilated jejunum in the left abdomen, may represent mild ileus. Early/partial obstruction is not excluded. No transition point. No significant surrounding inflammatory change or mass. Chronic mesenteric lymphadenopathy. Abdomen X-Ray 12/05/22 09:34 IMPRESSION: 1. Nonobstructive bowel gas pattern. Small Bowel X-Ray 12/05/22 12:56 IMPRESSION: 1. Nonobstructing stricture of a short segment of small bowel in the left abdomen which is likely sequela of chronic Crohn's disease. Labs Labs: Laborator
--- NOTE | 2022-12-05 13:32 | WPDGICN ---
Assessment and Plan Assessment and plan (1) Partial small bowel obstruction: Code(s): K56.600 - Partial intestinal obstruction, unspecified as to cause Status: Acute Assessment and Plan: he is feeling better SBFT showed ?Nonobstructing stricture of a short segment of small bowel in the left abdomen which is likely sequela of chronic Crohn's disease. He is already passing gas and denies any more nausea, still some discomfort surgery on board (2) Crohn's disease: Qualifiers: Digestive disease complication type: without complication Gastrointestinal tract location: unspecified location Qualified Code(s): K50.90 - Crohn's disease, unspecified, without complications Code(s): K50.90 - Crohn's disease, unspecified, without complications Status: Acute Assessment and Plan: will get inflammatory markers, if high then will start iv steroids symptom from SBFT finding he is already on humira (3) Left sided abdominal pain: Code(s): R10.9 - Unspecified abdominal pain Status: Acute Assessment and Plan: improving GI Consult Note Consult date/time: 12/05/22 13:32 Reason for consult: agustin sbo, Crohn's HPI: Sourav Mcknight is a 71 year old male who is my clinic patient after he was told about 10 years ago that probably had Crohn's but repeat colonoscopy 2019 normal, however had positive IBD serology in the past then repeat colonoscopy 12/30 showed few small diverticula in left side, colon mucosa normal but bx showed mild colitis, also few aphthous in TI (NONSPECIFIC MULTIFOCAL ACUTE ILEITIS in biopsy). About 3 years ago was in the hospital for SBO treated medically (had cholecystectomy), finally had capsule endoscopy 03/2021 that showed active inflammation of small bowel c/w Crohns, he has been on humira for almost a year now every 2 weeks doing well. He came to ER after sudden onset of severe cramping generalized abdominal pain day before of admission, then became bloated and nauseated but no vomiting. Labs [place] [id number] CT scan of abdomen and pelvis showed a single loop of mildly dilated jejunum in the left mid abdomen, possible ileus versus early/partial obstruction.? No transition point identified.?SBFT just done and showed ?Nonobstructing stricture of a short segment of small bowel in the left abdomen which is likely sequela of chronic Crohn's disease. He is feeling better. Next humira dose if this Saturday. Review of Systems Review of Systems: All systems reviewed & are unremarkable except as noted in HPI and below Constitutional: Constitutional: Reports no additional constitutional complaints, Denies chills, Denies fatigue and Denies fever(s) Eyes: Eyes: Reports no additional eye complaints ENT: Reports system reviewed and no additional complaints, except as documented and Denies dizziness Cardiovascular: Cardiovascular: Reports no additional cardiovascular complaints, Denies chest pain and Denies leg edema Respiratory: Respiratory: Reports no additional respiratory complaints, Denies cough and Denies dyspnea Gastrointestinal: Gastrointestinal: Reports as per HPI, Reports no additional gastrointestinal complaints, Reports abdominal pain, Denies melena, Reports bloating, Denies hematochezia, Denies change in bowel habits, Denies change in stool character, Denies constipation, Denies diarrhea, Reports nausea and Denies vomiting Genitourinary: Genitourinary: Reports no additional male genitourinary complaints Musculoskeletal: Musculoskeletal: Reports no additional musculoskeletal complaints, Denies abnormal gait and Denies joint swelling Integumentary/Breasts: Skin/Breast: Reports system reviewed and no additional complaints, except as docu Neurologic: Reports system reviewed and no additional complaints, except as documented, Denies headache(s), Denies focal weakness, Denies numbness and Denies tingling PMFSH Past Medical History Medical Hi
--- NOTE | 2022-12-05 14:53 | PC.NURSE ---
On 12/05/22, the student, Elle Sears, provided care and completed [facility] documentation on this patient. I have reviewed the student's documentation and agree with the findings.
[2022-12-05] MEDS: MORPHINE SULFATE (*CRX) 2 MG/ML INJ IV PUSH (18:21)
[2022-12-05] MEDS: HEPARIN SODIUM 5,000 UNITS/ML VIAL 5000 UNITS SUB-Q (20:21)
[2022-12-05] MEDS: ACETAMINOPHEN 325 MG TABLET 650 MG PO (21:07)
[2022-12-05] MEDS: MELATONIN 5 MG TABLET PO (21:07)
[2022-12-06] MEDS: ACETAMINOPHEN 325 MG TABLET 650 MG PO ×2 (05:37→23:37)
[2022-12-06 06:00] VITALS: BP 127/65; PULSE 62; RESP 18; TEMP 36.2; O2SAT 97
[2022-12-06 06:16] LABS: Basophils Percent Auto 0.5 % (0.2-1.2); Eosinophils Absolute Auto 0.2 K/mm3 (0-0.3); Hematocrit 42.5 % (42.0-52.0); Immature Granulocyte Absolute 0.03 K/mm3 (0.00-0.031); Immature Granulocyte Percent A 0.5 % (0-0.5); Lymphocytes Absolute Auto 2.07 K/mm3 (0.9-3.2); Lymphocytes Percent Auto 36.6 % (18.3-44.2); Mean Corpuscular HGB Conc 32.9 g/dl (32-36); Mean Corpuscular Hemoglobin 29.7 pg (26-34); Mean Platelet Volume 9.5 fl (7.4-10.4); Monocytes Absolute Auto 0.9 K/mm3 (0.1-0.6); Monocytes Percent Auto 16.1 % (2.6-8.5); Neutrophils Absolute Auto 2.5 K/mm3 (1.3-6.7); Neutrophils Percent Auto 43.3 % (45.5-73.1); Platelet Count Result 258 k/mm3 (150-375); Red Blood Count 4.72 M/mm3 (4.6-6.20); Red Cell Distribution Width 13.6 % (11.5-14.5); White Blood Count 5.7 K/mm3 (4.5-10.0)
[2022-12-06 06:30] LABS: Anion Gap 4 mmol/L (8-16); Blood Urea Nitrogen 9 mg/dL (9-20); CRP 5.8 mg/dL (<1.0); Calcium 8.3 mg/dL (8.4-10.2); Carbon Dioxide 28 mmol/L (22-30); Chloride 104 mmol/L (98-107); Estimated CRCL calculation 122 ml/min; Estimated Glomerular Filt Rate > 60; Glucose 94 mg/dL (65-110); Sodium 136 mmol/L (137-145)
[2022-12-06 06:57] LABS: Erythrocyte Sedimentation Rate 41 mm/hr (0-20)
[2022-12-06] MEDS: HEPARIN SODIUM 5,000 UNITS/ML VIAL 5000 UNITS SUB-Q ×2 (08:16→20:38)
--- NOTE | 2022-12-06 09:16 | PM.PNGS ---
Progress Note: A&P Assessment and Plan (1) Bowel obstruction: Code(s): K56.609 - Unspecified intestinal obstruction, unspecified as to partial versus complete obstruction Status: Acute Assessment and Plan: Small bowel follow through showed a nonobstructing 1.5 cm stricture in the small bowel likely related to his Crohn's disease. Bowels are moving and he is tolerating clear liquids. No evidence of an obstruction. Will advance diet as tolerated. Continue medical management of his Crohn's per GI. Okay from our standpoint to discharge patient when medically stable if tolerating his diet. (2) Crohn's disease: Qualifiers: Digestive disease complication type: without complication Gastrointestinal tract location: unspecified location Qualified Code(s): K50.90 - Crohn's disease, unspecified, without complications Code(s): K50.90 - Crohn's disease, unspecified, without complications Status: Acute Assessment and Plan: Management per GI, IV steroids were added. Patient also takes Humira. Plan I have discussed the patient's case and plan of care with Dr. Gonzalez. Subjective Subjective Date/Time Seen: 12/06/22 09:16 Patient reports: no new complaints, feels better, pain is less, tolerating liquids well, flatus and bowel movement Interval history: Patient improved today. He denies any abdominal pain or bloating. No nausea. Tolerating his clear liquids without any issues. He reports 2 BMs this morning. Review of Systems Review of Systems: ROS unchanged Exam Const: General: comfortable and no acute distress Orientation/consciousness: patient oriented x3 GI: Inspection: other (not significantly distended, has a protuberant rounded abdomen) GI Palp: Yes Soft to palpation, Yes Tenderness to palpation present (GI) (mild diffuse tenderness, no focal tenderness, improved), No Guarding due to palpation present (GI) and No Rebound tenderness present Auscultation: normal bowel sounds Psych: Insight: Good insight present (Psych) Judgement: Good judgement present (Psych) Objective Data Vital Signs Vital Signs: Vital Signs - 24 hr 12/05/22 13:43 12/05/22 14:00 12/05/22 16:12 Temperature 98 F 96.7 F L Pulse Rate 66 66 Respiratory Rate 17 14 Blood Pressure 133/86 148/91 H 150/80 H Pulse Oximetry 98 98 Oxygen Delivery 12/05/22 20:00 12/05/22 22:00 12/06/22 06:00 Temperature 96.5 F L 97.1 F L Pulse Rate 66 68 62 Respiratory Rate 14 16 18 Blood Pressure 149/81 H 127/65 Pulse Oximetry 98 97 97 Oxygen Delivery Room Air 12/06/22 08:20 Temperature Pulse Rate Respiratory Rate Blood Pressure Pulse Oximetry Oxygen Delivery Room Air Intake/Output Intake/Output: Intake & Output 12/03/22 12/04/22 12/05/22 12/06/22 23:59 23:59 23:59 23:59 Intake Total 2950 722 Output Total 175 1125 Balance 6811 -718 Meds/Results Medications: Active Medications Generic Name Dose Route Start Last Admin Trade Name Freq PRN Reason Stop Dose Admin Acetaminophen 650 mg 12/05/22 20:38 12/06/22 05:37 Acetaminophen 325 Mg Tablet PO 650 mg Q4H PRN Administration Headache Heparin Sodium (Porcine) 5,000 units 12/05/22 21:00 12/06/22 08:16 Heparin Sodium 5,000 Units/Ml Vial SUB-Q 5,000 units Q12HR YUNIOR Administration Hydralazine HCl 10 mg 12/05/22 13:11 Hydralazine Hcl 20 Mg/Ml Vial IV PUSH Q8H PRN Blood Pressure - High for BP Sodium Chloride 1,000 mls @ 100 mls/hr 12/05/22 08:50 12/05/22 20:21 Normal Saline Iv IV CONT 100 mls/hr .Q10H YUNIOR Administration Melatonin 5 mg 12/05/22 21:00 12/05/22 21:07 Melatonin 5 Mg Tablet PO 5 mg HS YUNIOR Administration Methylprednisolone Sodium Succinate 40 mg 12/06/22 13:00 Methylprednisolone Sod Succ 40 Mg Vial IV PUSH TID YUNIOR Morphine Sulfate 2 mg 12/05/22 00:59 12/05/22 18:21 Morphine Sulfate (*Crx) 2 Mg/Ml Inj IV PUSH 2 mg Q4H PRN A
[2022-12-06] MEDS: PANTOPRAZOLE SODIUM IV 40 MG VIAL IV PUSH (11:06)
[2022-12-06] MEDS: methylPREDNISolone SOD SUCC 40 MG VIAL IV PUSH ×2 (13:15→17:38)
--- NOTE | 2022-12-06 13:32 | PM.IMPN ---
Progress Note: A&P Assessment and Plan (1) Crohn's disease: Qualifiers: Digestive disease complication type: without complication Gastrointestinal tract location: unspecified location Qualified Code(s): K50.90 - Crohn's disease, unspecified, without complications Code(s): K50.90 - Crohn's disease, unspecified, without complications Status: Acute (2) Left sided abdominal pain: Code(s): R10.9 - Unspecified abdominal pain Status: Acute (3) Bowel obstruction: Code(s): K56.609 - Unspecified intestinal obstruction, unspecified as to partial versus complete obstruction Status: Acute Plan 71-year-old male with past medical history of Crohn's disease in remission, presented to the emergency room due to intractable nausea with dry heaving abdominal distension abdominal pain, cramps. 1)Abdominal Pain Appreciate surgery help Small bowel follow through showed a nonobstructing 1.5 cm stricture in the small bowel likely related to his Crohn's disease. Diet has been advanced Appreciate GI help Started on Steroids Pain control if needed dc IV fluids C/w PPI Resume home medications 2)Elevated BP:Add PRN IV hydralazine 3)DVT ppx: Hep SQ 4)Code:Full 5)Dispo:pending improvement Time Spent With Patient Time with patient: 15 - 25 minutes Subjective Date/time seen: 12/06/22 13:32 Interval history: mild abdominal discomfort present No nausea,vomiting Review of Systems Review of Systems: All systems reviewed & are unremarkable except as noted in HPI and below Exam Const: General: comfortable and no acute distress HENMT: Mouth: Yes moist mucous membranes Eyes: Sclera: sclerae normal Neck: Neck: supple Resp: Effort & Inspection: normal respiratory effort Auscultation: clear to auscultation bilaterally Cardio: Rate: regular rate Rhythm: regular rhythm GI: GI Palp: Yes Soft to palpation and Yes Tenderness to palpation present (GI) Auscultation: normal bowel sounds Skin: General skin exam: normal color Neuro: Speech: normal speech Extrem: General: normal to inspection Psych: Mental Status: mental status grossly normal Objective Data Vital Signs Vital Signs: Vital Signs - 24 hr 12/05/22 13:43 12/05/22 14:00 12/05/22 16:12 Temperature 98 F 96.7 F L Pulse Rate 66 66 Respiratory Rate 17 14 Blood Pressure 133/86 148/91 H 150/80 H Pulse Oximetry 98 98 Oxygen Delivery 12/05/22 20:00 12/05/22 22:00 12/06/22 06:00 Temperature 96.5 F L 97.1 F L Pulse Rate 66 68 62 Respiratory Rate 14 16 18 Blood Pressure 149/81 H 127/65 Pulse Oximetry 98 97 97 Oxygen Delivery Room Air 12/06/22 08:20 Temperature Pulse Rate Respiratory Rate Blood Pressure Pulse Oximetry Oxygen Delivery Room Air Intake/Output Intake/Output: Intake & Output 12/03/22 12/04/22 12/05/22 12/06/22 23:59 23:59 23:59 23:59 Intake Total 2950 2154 Output Total 175 1525 Balance 7695 629 Meds/Results Medications: Active Medications Generic Name Dose Route Start Last Admin Trade Name Freq PRN Reason Stop Dose Admin Acetaminophen 650 mg 12/05/22 20:38 12/06/22 05:37 Acetaminophen 325 Mg Tablet PO 650 mg Q4H PRN Administration Headache Heparin Sodium (Porcine) 5,000 units 12/05/22 21:00 12/06/22 08:16 Heparin Sodium 5,000 Units/Ml Vial SUB-Q 5,000 units Q12HR YUNIOR Administration Hydralazine HCl 10 mg 12/05/22 13:11 Hydralazine Hcl 20 Mg/Ml Vial IV PUSH Q8H PRN Blood Pressure - High for BP Sodium Chloride 1,000 mls @ 75 mls/hr 12/05/22 08:50 12/05/22 20:21 Normal Saline Iv IV CONT 100 mls/hr .[id number] YUNIOR Administration Melatonin 5 mg 12/05/22 21:00 12/05/22 21:07 Melatonin 5 Mg Tablet PO 5 mg HS YUNIOR Administration Methylprednisolone Sodium Succinate 40 mg 12/06/22 13:00 12/06/22 13:15 Methylprednisolone Sod Succ 40 Mg Vial IV PUSH 40 mg TID YUNIOR Administration Morphine
[2022-12-06 14:00] VITALS: BP 144/73; PULSE 65; RESP 18; TEMP 36.3; O2SAT 96
--- NOTE | 2022-12-06 16:25 | WPDGIPROGNO ---
Progress Note: A&P Assessment and Plan (1) Partial small bowel obstruction: Code(s): K56.600 - Partial intestinal obstruction, unspecified as to cause Status: Acute Assessment and Plan: sbft reviewed- stricture small bowel but no obstruction clinically much better no more nausea and tolerating diet inflammatory markers elevated, started low dose iv steroids (2) Stricture of small intestine: Code(s): K56.699 - Other intestinal obstruction unspecified as to partial versus complete obstruction Status: Acute Assessment and Plan: form crohn's [facility] as outpatient (3) Crohn's disease: Qualifiers: Digestive disease complication type: without complication Gastrointestinal tract location: unspecified location Qualified Code(s): K50.90 - Crohn's disease, unspecified, without complications Code(s): K50.90 - Crohn's disease, unspecified, without complications Status: Acute (4) Nausea: Code(s): R11.0 - Nausea Status: Acute Assessment and Plan: resolved (5) Abdominal pain: Code(s): R10.9 - Unspecified abdominal pain Status: Acute Subjective Date/time seen: 12/06/22 16:25 Interval history: he had bowel movements, feeling better, no more nausea and less abdominal discomfort. Review of Systems Review of Systems: All systems reviewed & are unremarkable except as noted in HPI and below Exam Const: General: comfortable and no acute distress Orientation/consciousness: patient oriented x3 HENMT: Face/Nose/Sinus: Normal nares present Eyes: Sclera: sclerae normal Neck: Neck: supple Resp: Auscultation: clear to auscultation bilaterally Cardio: Rate: regular rate GI: GI Palp: Yes Soft to palpation, Yes Tenderness to palpation present (GI) (mild diffuse tenderness, no focal tenderness, improved), No Guarding due to palpation present (GI) and No Rebound tenderness present Auscultation: normal bowel sounds Skin: General skin exam: normal color Neuro: Speech: normal speech Motor exam (neuro): 5/5 motor strength present throughout Extrem: General: normal to inspection Psych: Mental Status: mental status grossly normal Insight: Good insight present (Psych) Judgement: Good judgement present (Psych) Objective Data Vital Signs Vital Signs: Vital Signs - 24 hr 12/05/22 20:00 12/05/22 22:00 12/06/22 06:00 Temperature 96.5 F L 97.1 F L Pulse Rate 66 68 62 Respiratory Rate 14 16 18 Blood Pressure 149/81 H 127/65 Pulse Oximetry 98 97 97 Oxygen Delivery Room Air 12/06/22 08:20 12/06/22 14:00 Temperature 97.4 F L Pulse Rate 65 Respiratory Rate 18 Blood Pressure 144/73 H Pulse Oximetry 96 Oxygen Delivery Room Air Intake/Output Intake/Output: Intake & Output 12/03/22 12/04/22 12/05/22 12/06/22 23:59 23:59 23:59 23:59 Intake Total 2950 2154 Output Total 175 1525 Balance 2775 629 Meds/Results Medications: Active Medications Generic Name Dose Route Start Last Admin Trade Name Freq PRN Reason Stop Dose Admin Acetaminophen 650 mg 12/05/22 20:38 12/06/22 05:37 Acetaminophen 325 Mg Tablet PO 650 mg Q4H PRN Administration Headache Atorvastatin Calcium 10 mg 12/07/22 09:00 Atorvastatin 10 Mg Tablet PO DAILY YUNIOR Heparin Sodium (Porcine) 5,000 units 12/05/22 21:00 12/06/22 08:16 Heparin Sodium 5,000 Units/Ml Vial SUB-Q 5,000 units Q12HR YUNIOR Administration Hydralazine HCl 10 mg 12/05/22 13:11 Hydralazine Hcl 20 Mg/Ml Vial IV PUSH Q8H PRN Blood Pressure - High for BP Levothyroxine Sodium 50 mcg 12/07/22 06:30 Levothyroxine Sodium 50 Mcg Tablet PO DAILY@0630 YUNIOR Melatonin 5 mg 12/05/22 21:00 12/05/22 21:07 Melatonin 5 Mg Tablet PO 5 mg HS YUNIOR Administration Methylprednisolone Sodium Succinate 40 mg 12/06/22 13:00 12/06/22 13:15 Methylprednisolone Sod Succ 40 Mg Vial IV PUSH 40 mg TID YUNIOR Admi
[2022-12-06] MEDS: ARTIFICIAL TEARS OPHTH SOLN 15 ML BOTTLE 1 DROP EACH EYE (18:35)
[2022-12-06] MEDS: MELATONIN 5 MG TABLET PO (20:37)
[2022-12-06 22:00] VITALS: BP 131/73; PULSE 75; RESP 18; TEMP 36.4; O2SAT 95
[2022-12-07] MEDS: LEVOTHYROXINE SODIUM 50 MCG TABLET PO (05:44)
[2022-12-07 06:00] VITALS: BP 147/76; PULSE 63; RESP 18; TEMP 36; O2SAT 98
[2022-12-07 06:00] LABS: Basophils Percent Auto 0.2 % (0.2-1.2); Eosinophils Percent Auto 0.1 % (0-4.4); Hematocrit 43.9 % (42.0-52.0); Hemoglobin 14.7 g/dL (14.0-18.0); Immature Granulocyte Percent A 0.8 % (0-0.5); Lymphocytes Absolute Auto 2.63 K/mm3 (0.9-3.2); Lymphocytes Percent Auto 20.8 % (18.3-44.2); Mean Corpuscular HGB Conc 33.5 g/dl (32-36); Mean Corpuscular Hemoglobin 29.6 pg (26-34); Mean Corpuscular Volume 88.5 fl (80-100); Mean Platelet Volume 9.5 fl (7.4-10.4); Monocytes Absolute Auto 1.1 K/mm3 (0.1-0.6); Monocytes Percent Auto 8.8 % (2.6-8.5); Neutrophils Absolute Auto 8.8 K/mm3 (1.3-6.7); Neutrophils Percent Auto 69.3 % (45.5-73.1); Platelet Count Result 314 k/mm3 (150-375); Red Blood Count 4.96 M/mm3 (4.6-6.20); Red Cell Distribution Width 13.3 % (11.5-14.5); White Blood Count 12.6 K/mm3 (4.5-10.0)
[2022-12-07 06:17] LABS: Anion Gap 7 mmol/L (8-16); Blood Urea Nitrogen 11 mg/dL (9-20); Calcium 8.8 mg/dL (8.4-10.2); Carbon Dioxide 27 mmol/L (22-30); Chloride 104 mmol/L (98-107); Estimated CRCL calculation 122 ml/min; Estimated Glomerular Filt Rate > 60; Glucose 107 mg/dL (65-110); Potassium 4.4 mmol/L (3.4-5.0); Sodium 138 mmol/L (137-145)
[2022-12-07] MEDS: ATORVASTATIN 10 MG TABLET PO (08:46)
[2022-12-07] MEDS: PANTOPRAZOLE SODIUM IV 40 MG VIAL IV PUSH (08:46)
[2022-12-07] MEDS: methylPREDNISolone SOD SUCC 40 MG VIAL IV PUSH ×2 (08:46→13:33)
[2022-12-07] MEDS: HEPARIN SODIUM 5,000 UNITS/ML VIAL 5000 UNITS SUB-Q (08:48)
--- NOTE | 2022-12-07 10:30 | PM.IMPN ---
Progress Note: A&P Assessment and Plan (1) Crohn's disease: Qualifiers: Digestive disease complication type: without complication Gastrointestinal tract location: unspecified location Qualified Code(s): K50.90 - Crohn's disease, unspecified, without complications Code(s): K50.90 - Crohn's disease, unspecified, without complications Status: Acute (2) Left sided abdominal pain: Code(s): R10.9 - Unspecified abdominal pain Status: Acute (3) Bowel obstruction: Code(s): K56.609 - Unspecified intestinal obstruction, unspecified as to partial versus complete obstruction Status: Acute Plan 71-year-old male with past medical history of Crohn's disease in remission, presented to the emergency room due to intractable nausea with dry heaving abdominal distension abdominal pain, cramps. 1)Abdominal Pain Appreciate surgery help Small bowel follow through showed a nonobstructing 1.5 cm stricture in the small bowel likely related to his Crohn's disease. Diet has been advanced Appreciate GI help Started on Steroids Pain control if needed dc IV fluids C/w PPI Resume home medications 2)Elevated BP:Add PRN IV hydralazine 3)DVT ppx: Hep SQ 4)Code:Full 5)Dispo:pending improvement 12/07/2022 Patient is clinically improving. Patient pain has also improved significantly. Plan is to continue current treatment increase diet and activity as tolerated discharge home soon. Subjective Date/time seen: 12/07/22 10:30 Patient was seen during the morning rounds today. Patient is feeling slightly better. Decreased abdominal pain. No nausea or vomiting. No shortness of breath or chest pain. Mood stable. Review of Systems Review of Systems: All systems reviewed & are unremarkable except as noted in HPI and below Constitutional: Constitutional: Denies chills, Denies fatigue, Denies fever(s), Denies malaise, Denies night sweats, Denies weakness and Denies weight loss Eyes: Eyes: Denies change in vision ENT: Denies dysphagia and Denies odynophagia Cardiovascular: Cardiovascular: Denies chest pain, Denies leg edema, Denies palpitations and Denies dyspnea Respiratory: Respiratory: Denies chest congestion, Denies cough and Denies dyspnea Gastrointestinal: Gastrointestinal: Reports abdominal pain, Denies melena, Denies coffee ground emesis, Denies dysphagia, Denies dyspepsia, Denies heartburn, Denies diarrhea, Denies loose stools, Reports nausea, Denies odynophagia and Denies vomiting Genitourinary: Genitourinary: Denies dysuria Musculoskeletal: Musculoskeletal: Denies back pain Integumentary/Breasts: Skin/Breast: Denies rash Neurologic: Denies focal weakness, Denies Sensory deficit (Neuro) and Denies weakness Psychiatric: Psychiatric: Reports no additional psychiatric complaints and Reports as per HPI Endocrine: Endocrine: Denies cold intolerance, Denies fatigue, Denies flushing, Denies heat intolerance, Denies polyphagia, Denies polydipsia and Denies palpitations Hematologic/Lymphatic: Hematologic/Lymphatic: Reports no additional hematologic/lymphatic complaints and Reports as per HPI Allergic/Immunologic: Allergic/Immunologic: Reports no additional allergic/immunologic complaints and Reports as per HPI Exam Narrative: Patient is sitting at the edge of the stretcher feet on the ground Const: General: comfortable, no acute distress, well developed, alert, awake and average body habitus Nutritional Appearance: average body habitus Orientation/consciousness: patient oriented x3 HENMT: Head: normal to inspection, normocephalic and atraumatic Ears: hearing grossly normal bilaterally Face/Nose/Sinus: normal facial exam Face and sinus: normal facial exam Mouth: Yes moist mucous membranes Eyes: General: appearance normal, both eyes and all related structures Sclera: sclerae normal Pupils: Equal, round and reactive pupils present EOM: EOMs intact bilaterally Neck: Neck: full ROM,
[2022-12-07 14:00] VITALS: BP 132/64; PULSE 70; RESP 18; TEMP 36.1; O2SAT 97
--- NOTE | 2022-12-07 15:16 | WPDGIPROGNO ---
Progress Note: A&P Assessment and Plan (1) Partial small bowel obstruction: Code(s): K56.600 - Partial intestinal obstruction, unspecified as to cause Status: Acute Assessment and Plan: sbft reviewed- stricture small bowel but no obstruction inflammatory markers elevated and started on steroids he can go home with slow prednisonde taper (40 mg daily and decrease 10 mg each week), continue with humira and follow-up in office in 4-6 weeks (2) Stricture of small intestine: Code(s): K56.699 - Other intestinal obstruction unspecified as to partial versus complete obstruction Status: Acute Assessment and Plan: form crohn's continue humira as outpatient (3) Crohn's disease: Qualifiers: Digestive disease complication type: without complication Gastrointestinal tract location: unspecified location Qualified Code(s): K50.90 - Crohn's disease, unspecified, without complications Code(s): K50.90 - Crohn's disease, unspecified, without complications Status: Acute (4) Nausea: Code(s): R11.0 - Nausea Status: Acute Assessment and Plan: resolved (5) Abdominal pain: Code(s): R10.9 - Unspecified abdominal pain Status: Acute Assessment and Plan: resolved Subjective Date/time seen: 12/07/22 15:16 Interval history: doing much better, no nausea and tolerating diet Review of Systems Review of Systems: All systems reviewed & are unremarkable except as noted in HPI and below Exam Const: General: comfortable and no acute distress HENMT: Face/Nose/Sinus: Normal nares present Eyes: General: appearance normal, both eyes and all related structures Neck: Neck: no JVD Resp: Auscultation: clear to auscultation bilaterally Cardio: Rate: regular rate Rhythm: regular rhythm GI: Inspection: non-distended GI Palp: Yes Soft to palpation, No Tenderness to palpation present (GI) and No Guarding due to palpation present (GI) Auscultation: normal bowel sounds Skin: General skin exam: normal color Neuro: General: gait normal Speech: normal speech Extrem: General: normal to inspection Psych: Mental Status: mental status grossly normal Objective Data Vital Signs Vital Signs: Vital Signs - 24 hr 12/06/22 20:00 12/06/22 22:00 12/07/22 06:00 Temperature 97.5 F L 96.8 F L Pulse Rate 75 63 Respiratory Rate 18 18 Blood Pressure 131/73 147/76 H Pulse Oximetry 95 98 Oxygen Delivery Room Air 12/07/22 09:48 12/07/22 14:00 Temperature 96.9 F L Pulse Rate 70 Respiratory Rate 18 Blood Pressure 132/64 Pulse Oximetry 97 Oxygen Delivery Room Air Intake/Output Intake/Output: Intake & Output 12/04/22 12/05/22 12/06/22 12/07/22 23:59 23:59 23:59 23:59 Intake Total 2950 3084 950 Output Total 175 1925 250 Balance 2775 1159 700 Meds/Results Medications: Active Medications Generic Name Dose Route Start Last Admin Trade Name Freq PRN Reason Stop Dose Admin Acetaminophen 650 mg 12/05/22 20:38 12/06/22 23:37 Acetaminophen 325 Mg Tablet PO 650 mg Q4H PRN Administration Headache Artificial Tears 1 drop 12/06/22 17:48 12/06/22 18:35 Artificial Tears Ophth Soln 15 Ml Bottle EACH EYE 1 drop QID PRN Administration Dry Eye(s) Atorvastatin Calcium 10 mg 12/07/22 09:00 12/07/22 08:46 Atorvastatin 10 Mg Tablet PO 10 mg DAILY YUNIOR Administration Heparin Sodium (Porcine) 5,000 units 12/05/22 21:00 12/07/22 08:48 Heparin Sodium 5,000 Units/Ml Vial SUB-Q 5,000 units Q12HR YUNIOR Administration Hydralazine HCl 10 mg 12/05/22 13:11 Hydralazine Hcl 20 Mg/Ml Vial IV PUSH Q8H PRN Blood Pressure - High for BP Levothyroxine Sodium 50 mcg 12/07/22 06:30 12/07/22 05:44 Levothyroxine Sodium 50 Mcg Tablet PO 50 mcg DAILY@0630 YUNIOR Administration Melatonin 5 mg 12/05/22 21:00 12/06/22 20:37 Melatonin 5 Mg Tablet PO 5 mg HS YUNIOR Administ
--- NOTE | 2022-12-25 13:55 | PM.DS ---
DS: Admitting Diagnosis Discharge Date 12/07/22 Admitting Diagnosis Abdominal Pain Hx of crohns disease DS: Discharge Diagnosis Discharge Diagnosis (1) Crohn's disease: Qualifiers: Digestive disease complication type: without complication Gastrointestinal tract location: unspecified location Qualified Code(s): K50.90 - Crohn's disease, unspecified, without complications Code(s): K50.90 - Crohn's disease, unspecified, without complications Status: Acute (2) Left sided abdominal pain: Code(s): R10.9 - Unspecified abdominal pain Status: Acute (3) Bowel obstruction: Code(s): K56.609 - Unspecified intestinal obstruction, unspecified as to partial versus complete obstruction Status: Acute Plan 71-year-old male with past medical history of Crohn's disease in remission, presented to the emergency room due to intractable nausea with dry heaving abdominal distension abdominal pain, cramps. 1)Abdominal Pain Appreciate surgery help Small bowel follow through showed a nonobstructing 1.5 cm stricture in the small bowel likely related to his Crohn's disease. Diet has been advanced Appreciate GI help Started on Steroids Pain control if needed dc IV fluids C/w PPI Resume home medications 2)Elevated BP:Add PRN IV hydralazine 3)DVT ppx: Hep SQ 4)Code:Full 5)Dispo:pending improvement 12/07/2022 Patient is clinically improving. Patient pain has also improved significantly. Plan is to continue current treatment increase diet and activity as tolerated discharge home soon. DS: Summary Hospital Course Hospital Course: Patient was admitted with abdominal pain and possible crohns exacerbation. Patient was given antibiotics and fluids. Patient got better with treatment and was discharged home in stable condition. Time Spent with Patient Time attestation: Total time spent providing and/or coordinating discharge services: Exam Narrative: Patient is sitting at the edge of the stretcher feet on the ground Const: General: comfortable, no acute distress, well developed, alert, awake and average body habitus Nutritional Appearance: average body habitus Orientation/consciousness: patient oriented x3 HENMT: Head: normal to inspection, normocephalic and atraumatic Ears: hearing grossly normal bilaterally Face/Nose/Sinus: normal facial exam Face and sinus: normal facial exam Mouth: Yes moist mucous membranes Eyes: General: appearance normal, both eyes and all related structures Sclera: sclerae normal Pupils: Equal, round and reactive pupils present EOM: EOMs intact bilaterally Neck: Neck: full ROM, no lymphadenopathy, supple and no JVD Thyroid: thyroid normal Lymphatic: no lymphadenopathy noted Resp: Effort & Inspection: normal respiratory effort and able to speak in complete sentences Auscultation: clear to auscultation bilaterally Cardio: Jugular venous distension: no JVD Rate: regular rate Rhythm: regular rhythm Heart sounds: S1 normal heart sound present and S2 normal heart sound present GI: Inspection: distended, no visible herniation, no visible pulsation and No visible peristalsis Auscultation: normal bowel sounds, High-pitched bowel sounds present and Hyperactive bowel sounds present : General: Yes deferred Skin: General skin exam: normal color Rashes: no rashes Wounds: no wounds Neuro: General: patient oriented x3 and CN's II-XI intact bilaterally Cranial nerves: Yes CN's II-XII intact bilaterally and Yes Equal, round and reactive pupils present Cognition (Neuro): normal cognition Speech: normal speech Gait exam (Neuro): Normal gait present Motor exam (neuro): 5/5 motor strength present throughout Sensory Exam: No Sensory deficit (Neuro) Extrem: General: normal to inspection, full ROM, no joint enlargement and no pedal edema Psych: Mental Status: mental status grossly normal Discharge Plan Discharge Attending physician on discharge: Al Belcher
== END 2022-12-07 16:25 | disposition home or self-care (01) | DRG 387 ==
LOC: ANHED 23:26 → ANH3MEDSUR 12-05 00:09
PROVIDERS: Emergency Medicine; Internal Medicine; Internal Medicine Gastroenterology; Admitting Provider Internal Medicine; Emergency Provider Physician Assistant; PCP Family Medicine; Visit Provider Internal Medicine
DX: K50.012 Crohn's disease of small intestine with intestinal obstruction (principal); L30.9 Dermatitis, unspecified; E78.00 Pure hypercholesterolemia, unspecified; E66.9 Obesity, unspecified; Z68.32 Body mass index [BMI] 32.0-32.9, adult; Z90.49 Acquired absence of other specified parts of digestive tract
CPT/HCPCS: 36415; 74019; 74177; 74250; 80048; 80053; 81001; 83690; 83735; 85025; 85652; 86140; 96361; 96365; 96374; 96375; 96376; 99285; A9270; C9113; G0378; J0131; J1644; J2270; J2405; J2920; J7030; Q9967